=== PATIENT | female | born 1995 | race Caucasian/White ===

== ENCOUNTER → 2018-03-05 | Outpatient (CLI) | payer OTHER ==
--- NOTE | 2018-03-05 13:49 | Diagnostic Imaging Report ---
EXAMINATION: Left knee at 11:12 a.m. INDICATION: Fell, knee pain. Three views were obtained. FINDINGS: There is no fracture, dislocation, or acute bony abnormality evident. The knee joint is fairly well maintained. As noted on the prior exam of 06/17/2017, there is a joint effusion present. The joint effusion is perhaps slightly greater than on the prior study. The MRI left knee exam of 06/23/2017 did note that both menisci were torn and that there was a possibility of mild medial collateral ligament sprain. If further imaging of the knee joint is desired, then repeat MRI exam would be recommended. IMPRESSION: 1. There is no evidence for an acute bony abnormality. 2. The joint effusion noted previously is perhaps slightly greater. Additional considerations as above. Dictated by: Dictated on workstation # [id number]
== END ==
LOC: RAD 10:19
PROVIDERS: ATTEND Nurse Practitioner Primary Care
DX: M25.541 Pain in joints of right hand (principal); W01.0XXA Fall on same level from slipping, tripping and stumbling without subsequent striking against object, initial encounter
CPT/HCPCS: 73562

== ENCOUNTER 2018-09-06 12:13 | Day surgery (SDC) | payer OTHER ==
[~2018-09-06] VITALS: Ht 172.7 cm; Wt 56.7 kg
--- OUTSIDE RECORDS SUMMARY | 2018-09-06 12:18 | XMS REPORT | Referral Summary ---
Author Author [facility] Organization [facility] Address Unknown Phone Unavailable Care Team Providers Care Retail Sales Associate Name Role Phone Kellee Barclay PCP Encounter [facility] Date(s): 10/17/15 - 12/29/15 [facility], Surgery [address] [place], [place] [address] Discharge Disposition: 01-Home or Self Care Attending Physician: Hector Resendiz MD Admitting Physician: Hector Resendiz MD Vital Signs Most recent to 1 oldest [Reference Range]: Temperature Temporal 36.6 degC Artery [36.3-37.8 (10/17/15 12:41 PM) degC] Peripheral Pulse 88 bpm Rate [60-100 bpm] (10/17/15 12:41 PM) Respiratory Rate 16 br/min [14-20 br/min] (10/17/15 12:41 PM) Blood Pressure 101/63 mmHg [90-140/60-90 mmHg] (10/17/15 12:41 PM) SpO2 98 % (10/17/15 12:41 PM) Problem List Condition Effective Dates Status Health Status Informant ADD(Confirmed) Active ADHD(Confirmed) Active WCC (well child Active check)(Confirmed) Unspecified Active orthopedic aftercare(Confirmed) Impingement syndrome Active of right shoulder(Confirmed) Open wound of left Active knee(Confirmed) Open wound of right Active knee(Confirmed) Tendinitis of left Active knee(Confirmed) Transient synovitis Active of left knee(Confirmed) Allergies, Adverse Reactions, Alerts Substance Reaction Severity Status Lortab N&V Active Percocet 5/325 N&V Active Medications Mucinex D tabs, Oral, BID, 0 Refill(s) Start Date: 11/21/15 Status: Ordered Results No data available for this section Immunizations Vaccine Date Refusal Reason tetanus/diphth/pertuss (Tdap) adult/adol 04/19/10 diphtheria/pertussis, acel/tetanus ped 03/02/02 diphtheria/pertussis, acel/tetanus ped 11/21/98 diphtheria/pertussis, acel/tetanus ped 97 diphtheria/pertussis, acel/tetanus ped 97 diphtheria/pertussis, acel/tetanus ped 97 haemophilus b conjugate (HbOC) vaccine 11/21/98 haemophilus b conjugate (HbOC) vaccine 97 haemophilus b conjugate (HbOC) vaccine 97 haemophilus b conjugate (HbOC) vaccine 97 hepatitis B pediatric vaccine 97 hepatitis B pediatric vaccine 97 hepatitis B pediatric vaccine 97 measles/mumps/rubella virus vaccine 03/02/02 measles/mumps/rubella virus vaccine 08/13/98 meningococcal conjugate vaccine 07/04/08 poliovirus vaccine, inactivated 03/02/02 poliovirus vaccine, inactivated 11/21/98 poliovirus vaccine, inactivated 97 poliovirus vaccine, inactivated 97 poliovirus vaccine, inactivated 97 varicella virus vaccine 07/04/08 varicella virus vaccine 05/22/98 Procedures Procedure Date Related Diagnosis Body Site Debridement, subcutaneous tissue (includes 10/17/15 epidermis and dermis, if performed); first 20 sq cm or less Debridement, subcutaneous tissue (includes 10/17/15 epidermis and dermis, if performed); first 20 sq cm or less Debridement, subcutaneous tissue (includes 10/17/15 epidermis and dermis, if performed); first 20 sq cm or less Debridement, subcutaneous tissue (includes 10/17/15 epidermis and dermis, if performed); first 20 sq cm or less Repair, complex, scalp, arms, and/or legs; 10/17/15 2.6 cm to 7.5 cm Repair, complex, scalp, arms, and/or legs; 10/17/15 2.6 cm to 7.5 cm Repair, complex, scalp, arms, and/or legs; 10/17/15 2.6 cm to 7.5 cm Repair, complex, scalp, arms, and/or legs; 10/17/15 2.6 cm to 7.5 cm Arthroscopic synovectomy knee joint-MAJOR1 07/12/15 L Knee Part. Synovectomy 11/08/13 [place] teeth extracted [id number] POST OP GLOBAL ENDS 10-08-15 Social History Social History Type Response Smoking Status Never smoker Assessment and Plan Extracted from: Title: Ambulatory Patient Education Author: Ameena Miller RN Date: 10/17/15 [facility] Post Operative Instructions Ambulation x_ Unrestricted x_Must wear knee brace until you are seen in clinic. You may take it off to take a shower. _ Weight Bearing: _ Partial x_ Full Exercise x_No Exercise ( with left leg- can do upper body exercise) _Light _ _Unrestricted _ _Other: _Do not strain or lift more than lbs. for weeks. Diet __ Liquids (Jell-O, soups, etc., if you are nauseated) __ Begin with liquids and light foods then progress to regular diet. X__ Regular diet __ No alcoholic beverages for 24 hours or while taking pain medication. Personal hygiene __ Bath X__ Shower after _24_ hours __ Sponge Bath __ [facility] _X_ Remove dressing in _24__hours __ Keep dressing clean and dry. _x_ Elevate affected area above level of your heart. __ Do not change dressing until you see your doctor. __ Apply ice to area for ___ hours __ Avoid blowing nose. __ Remove drain in ___ hours __ Change dressing as necessary. _x_ Apply Bacitracin to incision for 5 days. Keep clean and dry after 5 days. Other: If any problems occur or if you have any further questions, please contact your physician. In an emergency, call [phone] ([phone]), if you cannot reach your physician. If you find that you cannot contact your physician, but feel that your signs and symptoms warrant a physician s attention, go to an Emergency room which is the closest to you. Activities: __ Take Tylenol/Advil as needed for discomfort _X_ Prescription given for discomfort. Use as directed. __ Prescription given for antibiotic. Follow instructionson label. Continue taking until medication is gone. _X_ Resume routine medications. Next dose of pain medicine may be given at (Take with food to prevent stomach upset.) Other: Call your surgeon promptly if you have: _X_ Fever over ___101 _X_ Pain not relieved by pain medication _X_ Bleeding or unexpected drainage from incision _X_ Extreme redness or swelling around incision. __ Inability to urinate by: _X_ Persistent nausea and vomiting. __ Cough develops or difficulty breathing Do NOT drive or operate hazardous machinery for 24 hours or while taking pain medication. Do not sign any important documents or make important decisions for 24 hours following surgery. When taking pain medicine, be careful as you walk or climb stairs as dizziness is not unusual. Check temperature every four hours during the day for two days. Follow Up With: Where: When: Hector Resendiz [address] [place], [place] [id number] [facility] (1) In 20 days 11/06/2015 Comments: Call for followup appointment Follow Up With: Where: When: Kellee Barclay Within 3 to 5 days Comments:
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
--- OUTSIDE RECORDS SUMMARY | 2018-09-06 12:18 | XMS REPORT | Referral Summary ---
Author Author [facility] Surgery Organization [facility] Address Unknown Phone Unavailable Care Team Providers Care Rotary Drier Name Role Phone Nano Finn PCP Encounter [facility] [id number] Date(s): 12/09/16 - 12/09/16 [facility] [address] [place], [place] [address] Discharge Diagnosis: Recurrent acute tonsillitis Discharge Diagnosis: Chronic tonsillitis Discharge Disposition: 01-Home or Self Care Attending Physician: Molly Barlow DO Admitting Physician: Molly Barlow DO Vital Signs Most recent to 1 oldest [Reference Range]: Temperature Temporal 37.0 degC Artery [36.3-37.8 (12/09/16 7:51 AM) degC] Peripheral Pulse 91 bpm Rate [60-100 bpm] (12/09/16 7:51 AM) Respiratory Rate 18 br/min [14-20 br/min] (12/09/16 7:51 AM) Blood Pressure 108/65 mmHg [90-140/60-90 mmHg] (12/09/16 7:51 AM) SpO2 98 % (12/09/16 7:51 AM) Problem List Condition Effective Dates Status Health Status Informant ADD(Confirmed) Active ADHD(Confirmed) Active TMJ Active disease(Confirmed) WCC (well child Active check)(Confirmed) Chronic Active tonsillitis(Confirme d) Unspecified Active orthopedic aftercare(Confirmed) Impingement syndrome Active of right shoulder(Confirmed) Open wound of left Active knee(Confirmed) Open wound of right Active knee(Confirmed) Recurrent acute Active tonsillitis(Confirme d) Tendinitis of left Active knee(Confirmed) Transient synovitis Active of left knee(Confirmed) Allergies, Adverse Reactions, Alerts Substance Reaction Severity Status Lortab N&V Active Percocet 5/325 N&V Active Medications Carafate 1 g oral tablet 1 g 1 tabs, Oral, BID, # 60 tabs, 2 Refill(s), Pharmacy: [facility]/pharmacy #[id number], 1 tabs Oral BID Start Date: 11/25/16 Status: Ordered oxyCODONE-acetaminophen 5 mg-325 mg oral tablet 1 tabs, Oral, q4hr, as needed for pain, # 30 tabs, 0 Refill(s) Start Date: 12/09/16 Stop Date: 12/25/16 Status: Ordered tetraciane lolipop tetraciane lolipop, See Instructions, place 1 lolipop in mouth for up to 3 minutes, replace in vial, use q 2-3 hrs prn for pain, # 3 Each, 1 Refill(s), Pharmacy: [facility], place 1 lolipop in mouth for up to 3 minutes, replace in vial, use q... Start Date: 12/09/16 Status: Ordered tetraciane lolipop tetraciane lolipop, See Instructions, place 1 lolipop in mouth for up to 3 minutes, replace in vial, use q 2-3 hrs prn for pain, # 3 Each, 0 Refill(s), Pharmacy: [facility], Keep on hold for patient, place 1 lolipop in mouth for up to 3 minutes, r... Start Date: 12/09/16 Status: Ordered Zofran 4 mg oral tablet 4 mg 1 tabs, Oral, q6hr, Nausea or Vomiting, # 30 tabs, 0 Refill(s), Pharmacy: [facility] [id number] [facility] [employer], 1 tabs Oral q6hr,PRN:Nausea or Vomiting Start Date: 12/09/16 Status: Ordered Zofran ODT 4 mg oral tablet, disintegrating 4 mg 1 tabs, Oral, q6hr, as needed for nausea/vomiting, # 30 tabs, 0 Refill(s), Pharmacy: [facility] #[id number], 1 tabs Oral q6hr,PRN:as needed for nausea/ vomiting Start Date: 12/09/16 Status: Ordered Results No data available for this section Immunizations Given and Recorded Vaccine Date Status Refusal Reason tetanus/diphth/pertuss (Tdap) adult/adol 6/10/10 Recorded diphtheria/pertussis, acel/tetanus ped 03/02/02 Given diphtheria/pertussis, acel/tetanus ped 11/21/98 Given diphtheria/pertussis, acel/tetanus ped 97 Given diphtheria/pertussis, acel/tetanus ped 97 Given diphtheria/pertussis, acel/tetanus ped 97 Given haemophilus b conjugate (HbOC) vaccine 11/21/98 Given haemophilus b conjugate (HbOC) vaccine 97 Given haemophilus b conjugate (HbOC) vaccine 97 Given haemophilus b conjugate (HbOC) vaccine 97 Given hepatitis B pediatric vaccine 97 Given hepatitis B pediatric vaccine 97 Given hepatitis B pediatric vaccine 97 Given measles/mumps/rubella virus vaccine 03/02/02 Given measles/mumps/rubella virus vaccine 08/13/98 Given meningococcal conjugate vaccine 07/04/08 Given poliovirus vaccine, inactivated 03/02/02 Given poliovirus vaccine, inactivated 11/21/98 Given poliovirus vaccine, inactivated 97 Given poliovirus vaccine, inactivated 97 Given poliovirus vaccine, inactivated 97 Given varicella virus vaccine 07/04/08 Given varicella virus vaccine 05/22/98 Given Procedures Procedure Date Related Diagnosis Body Site Tonsillectomy, primary or secondary; age 14 12/09/16 or over.. Arthroscopic synovectomy knee joint-MAJOR1 07/12/15 L Knee Part. Synovectomy 11/08/13 [place] teeth extracted [id number] POST OP GLOBAL ENDS 10-08-15 Social History Social History Type Response Smoking Status Never smoker Assessment and Plan Extracted from: Title: Ambulatory Patient Education Author: Halima Beal RN, ACLS, Date: 12/09/16 BLS, PALS [facility] [place] Post Operative Instructions Ambulate _X Unrestricted __ On Crutches as tolerated __ Weight Bearing Exercise __ None X_ Light __ Unrestricted X__Do not strain or lift more than _ lbs. for _ weeks. Other: Diet __ Liquids (Jell-O, soups, etc., if you are nauseated) X Begin with liquids and light foods then progress to soft diet. __ Regular diet __ No alcoholic beverages for 24 hours or while taking pain medication. Personal hygiene __ Bath __ Shower after __ hours __ Sponge Bath __ [facility] Home care __ Remove dressing in ___hours __ Keep dressing clean and dry. __ Elevate affected area above level of your heart. __ Do not change dressing until you see your doctor. __ Apply ice to area for ___ hours __ Avoid blowing nose. __ Wear sling as directed. _ Keep water out of ears __ Remove drain in ___ hours __ Change dressing as necessary. Other: If any problems occur or if you have any further questions, please contact your physician. In an emergency, call [phone] ([phone]), if you cannot reach your physician. If you find that you cannot contact your physician, but feel that your signs and symptoms warrant a physician s attention, go to an Emergency room which is the closest to you. Activities: X Take Tylenol as needed for discomfort X_ Prescription given for discomfort. Use as directed. __ Prescription given for antibiotic. Follow instructionson label. Continue taking until medication is gone. __ Resume routine medications. __ Ear drainage more than Days __ Stool softener Next dose of pain medicine may be given at (Take with food to prevent stomach upset.) Other: Call your surgeon promptly if you have: __ Fever over 101 __ Ear drainage more than _5 Days X__ Pain not relieved by pain medication X_ Bleeding or unexpected drainage from incision __ Extreme redness or swelling around incision. X__ Inability to urinate by: _8 hours postop X__ Persistent nausea and vomiting. __ Cough develops [...] two days. Follow Up With: Where: When: [facility] [place]; [place] [address] [facility] (1) 12/23/2016 04:30:00 Comments:
--- OUTSIDE RECORDS SUMMARY | 2018-09-06 12:19 | XMS REPORT | Referral Summary ---
Author Author [facility] Organization [facility] Address Unknown Phone Unavailable Care Team Providers Care Trimming Machine Operator Name Role Phone Kellee Barclay PCP Encounter VC Date(s): 04/11/17 - 04/11/17 [facility], [facility] [address] [place] [address] Discharge Diagnosis: Severe dysmenorrhea Discharge Diagnosis: Primary dysmenorrhea Discharge Disposition: 01-Home or Self Care Attending Physician: Meghan Reyes Vital Signs Most recent to 1 oldest [Reference Range]: Temperature Oral 36.8 degC [35.8-37.3 degC] (04/11/17 9:36 AM) Peripheral Pulse 100 bpm Rate [60-100 bpm] (04/11/17 9:36 AM) Respiratory Rate 16 br/min [14-20 br/min] (04/11/17 9:36 AM) Blood Pressure 90/60 mmHg [90-140/60-90 mmHg] (04/11/17 9:36 AM) SpO2 98 % (04/11/17 9:36 AM) Problem List Condition Effective Dates Status [...] N&V Active Percocet 5/325 N&V Active Medications Aviane 100 mcg-20 mcg oral tablet 1 tabs, Oral, Daily, take 21 days of active tablets then skip placebos and start the next pack x3 months in a row, # 84 tabs, 4 Refill(s), Indication: Dysmenorrhea, Pharmacy: [facility] #[id number] Start Date: 04/11/17 Status: Ordered Results No data available for this section Immunizations Given and Recorded Vaccine Date Status Refusal Reason tetanus/diphth/pertuss (Tdap) adult/adol 04/19/10 Recorded diphtheria/pertussis, acel/tetanus ped 03/02/02 Given diphtheria/pertussis, [...] joint-MAJOR1 07/12/15 L Knee Part. Synovectomy 11/08/13 [place] teeth extracted [id number] POST OP GLOBAL ENDS 10-08-15 Social History Social History Type Response Smoking Status Never smoker Assessment and Plan Extracted from: Title: Office Visit Note Author: Meghan Reyes Date: 04/11/17 Assessment/Plan 1.Severe dysmenorrhea Will use OCP for treatment of dysmenorrhea and irregular periods. Start Aviane this Friday. Use consecutively x3 months. Instructions for use and possible side effects discussed, including risk of DVT or PE. Follow-up as needed for any persistent symptoms.
--- OUTSIDE RECORDS SUMMARY | 2018-09-06 12:19 | XMS REPORT | Referral Summary ---
Author Author [facility] Organization [facility] Address Unknown Phone Unavailable Care Team Providers Care Statement Processor Name Role Phone Mark Anthony Ramirez PCP Encounter Date(s): 03/15/15 - 03/15/15 [facility] [address] [place], [place] [address] [id number] Discharge Diagnosis: Depression Discharge Diagnosis: Anxiety Discharge Disposition: 01-Home or Self Care Attending Physician: Mark Anthony Ramirez MD Admitting Physician: Mark Anthony Ramirez MD Vital Signs Most recent to 1 oldest [Reference Range]: Peripheral Pulse 72 bpm Rate [55-90 bpm] (03/15/15 8:19 AM) Respiratory Rate 12 br/min [14-20 br/min] *LOW* (03/15/15 8:19 AM) Blood Pressure 92/56 mmHg [90-138/45-84 mmHg] (03/15/15 8:19 AM) Problem List Condition Effective Dates Status Health Status Informant ADD(Confirmed) Active ADHD(Confirmed) Active WCC (well child Active check)(Confirmed) Unspecified Active orthopedic aftercare(Confirmed) Impingement syndrome Active of right shoulder(Confirmed) Tendinitis of left Active knee(Confirmed) Transient synovitis [...] joint-MAJOR1 07/12/15 L Knee Part. Synovectomy 11/08/13 [place] teeth extracted [id number] POST OP GLOBAL ENDS 10-08-15 Social History Social History Type Response Smoking Status Never smoker Assessment and Plan Extracted from: Title: Office Visit Note Author: Mark Anthony Ramirez MD Date: 03/15/15 Assessment/Plan Anxiety Slowly improving. She's had a good initial response to medication and tolerating it well. We'll give it another 2 weeks would like him to call at that time. If she still not showing improvement we may increase the dose from 50-100 mg sertraline. We'll see her back at the end of the month to see how she is doing before she leaves [facility]. Encouraged her to continue with the counseling to see if she can adjust to this. Ordered: Office Visit Level 3 Est 80254 Depression As above. Ordered: Office Visit Level 3 Est 62590
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
--- OUTSIDE RECORDS SUMMARY | 2018-09-06 12:19 | XMS REPORT | Referral Summary ---
Author Author [facility] Organization [facility] Address Unknown Phone Unavailable Care Team Providers Care Energy Technician Name Role Phone Kellee Barclay PCP Encounter [facility] Date(s): 07/18/15 - 07/18/15 [facility] [address] [place], [place] [address] Discharge Diagnosis: Unspecified orthopedic aftercare Discharge Disposition: 01-Home or Self Care Attending Physician: Gerson Landry Admitting Physician: Gerson Landry Vital Signs Most recent to 1 oldest [Reference Range]: Respiratory Rate 18 br/min [14-20 br/min] (07/18/15 10:50 AM) Problem List Condition Effective Dates Status [...] joint-[email or web address] 07/12/15 L Knee Part. Synovectomy 11/08/13 [place] teeth extracted [id number] POST OP GLOBAL ENDS 10-08-15 Social History Social History Type Response Smoking Status Never smoker Assessment and Plan Extracted from: Title: Office Visit Note Author: Gerson Landry Date: 07/18/15 Assessment/Plan Unspecified orthopedic aftercare Plan: Patient and her father were counseled on the surgical findings with use of a knee model they did not want to see the arthroscopic photos. I talked with her about aspiration of her knee but she refused stating that she had aspirations of her knee in the past and the fluid always came back so she did not want to do a knee aspiration today. We'll have her take Dilaudid 4 mg up to every 3 or 4 hours. Also want her to take ibuprofen 600 mg 3 times a day and I wrote for prescription for tramadol that she can take in addition to the ibuprofen in the Dilaudid. Also wrote for a few Valium to take as needed for muscle spasms. We'll see her in a week to ensure that things are improving and if there are questions concerns or problems at any point she is to call. Patient and her father also extensively counseled by Dr. Walsh during this visit. Ordered: Postoperative Est [id number] Request for Therapies Return to Clinic Orders: diazepam, 5 mg 1 tabs, Oral, QID, Muscle Spasm, # 10 tabs, 0 Refill(s) HYDROmorphone, 4 mg 1 tabs, Oral, q4hr, as needed for pain, # 30 tabs, 0 Refill(s) traMADol, See Instructions, take 1-2 tabs by mouth every 4-6 hrs as needed for pain, # 50 tabs, 0 Refill(s)
--- OUTSIDE RECORDS SUMMARY | 2018-09-06 12:19 | XMS REPORT | Referral Summary ---
Author Author [facility] Organization [facility] Address Unknown Phone Unavailable Care Team Providers Care Event Promotions Coordinator Name Role Phone Kellee Barclay PCP Encounter [facility] Date(s): 01/12/16 - 01/12/16 [facility] [address] [place], [place] [address] Discharge Diagnosis: Transient synovitis of left knee Discharge Disposition: 01-Home or Self Care Attending Physician: Claude Walsh MD Admitting Physician: Claude Walsh MD Vital Signs Most recent to 1 oldest [Reference Range]: Respiratory Rate 18 br/min [14-20 br/min] (01/12/16 3:23 PM) Problem List Condition Effective Dates Status [...] Refill(s) Start Date: 11/21/15 Status: Ordered Results Microbiology Reports TEST: Gram Smear STATUS: Auth (Verified) BODY SITE: Knee, Left SOURCE: Synovial Fluid COLLECTED DATE/TIME: 01/12/16 4:05 PM Gram Smear Few (1-5/OIF) white blood cells No microorganisms observed OIF=Oil Immersion Field LPF=Low Power Field Immunizations Vaccine Date Refusal Reason tetanus/diphth/pertuss (Tdap) [...] Procedures Procedure Date Related Diagnosis Body Site Arthrocentesis, aspiration and/or injection, 01/12/16 major joint or bursa (eg, shoulder, hip, knee, subacromial bursa); without ultrasound guidance Arthroscopic synovectomy knee joint-MAJOR1 07/12/15 L Knee Part. Synovectomy 11/08/13 [place] teeth extracted [id number] POST OP GLOBAL ENDS 10-08-15 Social History Social History Type Response Smoking Status Never smoker Assessment and Plan Extracted from: Title: Office Visit Note Author: Claude Walsh MD Date: 01/12/16 Assessment/Plan Transient synovitis of left knee She has recurrence synovitis in her left knee. I recommend we aspirate the knee today sent it off forcrystals, Gram stain, cell count, cultures. See her back in 6 days. Review all the lab. And see if she's better. If there was blood in the joint and I was going to obtain an MRI but there is no blood in the joint. Procedure note: Left knee was sterilely prepped with Betadine said. Her and laterally to the patella. Then theanesthetized the skin with one percent lidocaine superior and laterally to the patella. I then aspirated off 45 mL of synovial fluid. There is no bloodin it. I then injected back 80 mg of Kenalog and 4 mL one percent lidocaine with epinephrine. Applied aBand-Aid and an Errol wrap. I will see her back in 6 days. Ordered: triamcinolone, 2 mL, IntraARTICULAR , Once, First Dose: 01/12/16 17:00:00 TELECOMMUNICATIONS FACILITY EXAMINER, Stop Date: 01/12/16 17:00:00 TELECOMMUNICATIONS FACILITY EXAMINER, [facility] 5301-1051-37 Arthro/Asp Major Joint Inj (Shoulder, Hip, Knee) 80632 Office Visit Level 3 Est 58576
--- OUTSIDE RECORDS SUMMARY | 2018-09-06 12:19 | XMS REPORT | Referral Summary ---
Author Author [facility] Organization [facility] Address Unknown Phone Unavailable Care Team Providers Care Lcac Radar Operator/Navigator Name Role Phone Kellee Barclay PCP Encounter [facility] [id number] Date(s): 08/01/15 - 08/01/15 [facility] [address] [place], [place] [address] Discharge Diagnosis: Unspecified orthopedic aftercare Discharge Disposition: 01-Home or Self Care Attending Physician: Gerson Landry Admitting Physician: Gerson Landry Vital Signs Most recent to 1 oldest [Reference Range]: Respiratory Rate 18 br/min [14-20 br/min] (08/01/15 3:26 PM) Problem List Condition Effective Dates Status [...] joint-MAJOR1 07/12/15 L Knee Part. Synovectomy 11/08/13 [place] teeth extracted [id number] POST OP [facility] i-marker 10-08-15 Social History Social History Type Response Smoking Status Never smoker Assessment and Plan Extracted from: Title: Office Visit Note Author: Gerson Landry Date: 08/01/15 Assessment/Plan Unspecified orthopedic aftercare Plan: If that's blistered area comes off want them to put Neosporin over the front of her knee with some nonadherent pads and continue wrapping her knee with an Errol wrap. She'll continue with her therapy couple times a week. We'll have her take some Keflex 500 mg 4 times a day. Also want her to take anti-inflammatory and a prescription for meloxicam was call out to her pharmacy. She'll continue taking Neurontin at bedtime and tramadol as needed for discomfort during the day. If this questions concerns or problems at any point she is to call. Ordered: Postoperative Est [id number] Return to Clinic Orders: cephalexin, 500 mg 1 caps, Oral, QID, X 7 days, # 28 caps, 0 Refill(s) , Pharmacy: [facility] #[id number], 1 caps Oral QID,x7 days
--- OUTSIDE RECORDS SUMMARY | 2018-09-06 12:19 | XMS REPORT | Referral Summary ---
Author Author [facility] Organization [facility] Address Unknown Phone Unavailable Care Team Providers Care Java Mobile Developer Name Role Phone Nano Finn PCP Encounter [facility] [id number] Date(s): 11/29/16 - 11/29/16 [facility] [address] [place], [place] [address] Discharge Disposition: 01-Home or Self Care Attending Physician: Molly Barlow DO Admitting Physician: Molly Barlow DO Vital Signs Most recent to 1 oldest [Reference Range]: Peripheral Pulse 70 bpm Rate [60-100 bpm] (11/29/16 2:39 PM) Blood Pressure 106/64 mmHg [90-140/60-90 mmHg] (11/29/16 2:39 PM) SpO2 97 % (11/29/16 2:39 PM) Problem List Condition Effective Dates Status [...] BID, # 60 tabs, 2 Refill(s), Pharmacy: [facility]/pharmacy #[id number], 1 tabs Oral BID Start Date: 11/25/16 Status: Ordered Zofran ODT 4 mg oral tablet, disintegrating 4 mg 1 tabs, Oral, q8hr, as needed for nausea/vomiting, # 20 tabs, 0 Refill(s), Pharmacy: [facility]/pharmacy #[id number], 1 tabs Oral q8hr,PRN:as needed for nausea/ vomiting Start Date: 11/25/16 Status: Ordered Results No data available for [...] joint-MAJOR1 07/12/15 L Knee Part. Synovectomy 11/08/13 [place] teeth extracted [id number] POST OP GLOBAL ENDS 10-08-15 Social History Social History Type Response Smoking Status Never smoker Assessment and Plan No data available for this section
--- OUTSIDE RECORDS SUMMARY | 2018-09-06 12:19 | XMS REPORT | Referral Summary ---
Author Author [facility] Organization [facility] Address Unknown Phone Unavailable Care Team Providers Care Drum Stock Clerk Name Role Phone Kellee Barclay PCP Encounter [facility] Date(s): 03/27/15 - 03/27/15 [facility] [address] [facility] [place] [address] Discharge Diagnosis: Anxiety Discharge Diagnosis: Depression Discharge Disposition: 01-Home or Self Care Attending Physician: Mark Anthony Ramirez MD Admitting Physician: Mark Anthony Ramirez MD Vital Signs Most recent to 1 oldest [Reference Range]: Peripheral Pulse 96 bpm Rate [55-90 bpm] *HI* (03/27/15 10:12 AM) Respiratory Rate 12 br/min [14-20 br/min] *LOW* (03/27/15 10:12 AM) Blood Pressure 98/56 mmHg [90-138/45-84 mmHg] (03/27/15 10:12 AM) Problem List Condition Effective Dates Status Health Status Informant ADD(Confirmed) Active ADHD(Confirmed) Active WCC (well child Active check)(Confirmed) Unspecified Active orthopedic aftercare(Confirmed) Impingement syndrome Active of right shoulder(Confirmed) Open wound of left Active knee(Confirmed) Open wound of right Active knee(Confirmed) Tendinitis of left Active knee(Confirmed) Transient synovitis Active of left knee(Confirmed) Allergies, Adverse Reactions, Alerts Substance Reaction Severity Status Lortab Active Percocet 5/ Active Medications No Known Medications Results No [...] joint-MAJOR1 07/12/15 L Knee Part. Synovectomy 11/08/13 [place] teeth extracted [id number] POST OP GLOBAL ENDS 10-08-15 Social History Social History Type Response Smoking Status Never smoker Assessment and Plan Extracted from: Title: Office Visit Note Author: Mark Anthony Ramirez MD Date: 05/12/15 Assessment/Plan Anxiety Overall she says seem improved and tolerating the medicine well. Wanted to continue the same dose and ideally for a few months. 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 If so we'll have to reevaluate she gets back from school year. Note was written for appointment today in follow-up at that time. Depression As above
--- OUTSIDE RECORDS SUMMARY | 2018-09-06 12:19 | XMS REPORT | Referral Summary ---
Author Author [facility] Organization [facility] Address Unknown Phone Unavailable Care Team Providers Care Concrete Boom Operator Name Role Phone Kellee Barclay PCP Encounter [facility] Date(s): 07/06/15 - 07/06/15 [facility] [address] [place], [place] [address] Discharge Diagnosis: Transient synovitis of left knee Discharge Diagnosis: Impingement syndrome of right shoulder Discharge Disposition: 01-Home or Self Care Attending Physician: Claude Walsh MD Admitting Physician: Claude Walsh MD Vital Signs Most recent to 1 oldest [Reference Range]: Respiratory Rate 18 br/min [14-20 br/min] (07/06/15 3:44 PM) Problem List Condition Effective Dates Status [...] joint-MAJOR1 07/12/15 L Knee Part. Synovectomy 11/08/13 [place] teeth extracted [id number] POST OP GLOBAL ENDS 10-08-15 Social History Social History Type Response Smoking Status Never smoker Assessment and Plan Extracted from: Title: Office Visit Note Author: Claude Walsh MD Date: 07/07/15 Assessment/Plan Impingement syndrome of right shoulder I would recommend we try an injection in the subacromial space and the right shoulder. She wants wait till she is asleep under anesthesia to do this. Ordered: Office Visit Level 3 Est 46504 Transient synovitis of left knee She has recurrent effusions in the left knee recommend we do a left knee arthroscopy with debridement. We'll do the injection the right shoulder in the subacromial space same time. Surgery be an outpatient general anesthetic. She's currently scheduled for surgery on July 12 with a follow-up on July 18. Talk with her and her father about surgery and the postoperative care. Told her is no guarantee this may not keep recurring. But I feel her must be something in her knee that's irritating to keep it having recurrent effusions. Ordered: Office Visit Level 3 Est 36546
--- OUTSIDE RECORDS SUMMARY | 2018-09-06 12:20 | XMS REPORT | Referral Summary ---
Author Author [facility] Organization [facility] Address Unknown Phone Unavailable Care Team Providers Care General Intern Name Role Phone Kellee Barclay PCP Encounter [facility] Date(s): 11/21/15 - 11/21/15 [facility] [address] [place] [address] [facility] Discharge Disposition: 01-Home or Self Care Attending Physician: Haja Davenport PA-C Attending Physician: Provider, Immediate Care Admitting Physician: Provider, Immediate Care Vital Signs Most recent to 1 oldest [Reference Range]: Temperature Oral 36.7 degC [35.8-37.3 degC] (11/21/15 11:14 AM) Peripheral Pulse 107 bpm Rate [60-100 bpm] *HI* (11/21/15 11:14 AM) Blood Pressure 110/68 mmHg [90-140/60-90 mmHg] (11/21/15 11:14 AM) SpO2 99 % (11/21/15 11:14 AM) Problem List Condition Effective Dates Status [...] joint-MAJOR1 07/12/15 L Knee Part. Synovectomy 11/08/13 [place] teeth extracted [id number] POST OP GLOBAL ENDS 10-08-15 Social History Social History Type Response Smoking Status Never smoker Assessment and Plan Extracted from: Title: Office Visit Note Author: Haja Davenport PA-C Date: 11/21/15 Assessment/Plan 1.Sore throat Rapid strep negative. Throat Cx pending. Pt will take OTC ibuprofen as directed. Diagnosis and treatment discussed. Patient advised to follow up with PCP in 2-3 days. If symptoms worsen at any time, patient will go to the nearest ER for further evaluation. Patient stable upon discharge, alert and orientated with no apparent distress, and indicated understanding of discharge instructions. Ordered: Group A Strep Culture Office Visit Level 3 Est 65957 Extracted from: Title: Clinical Document Author: Haja Davenport PA-C Date: 11/21/15 To Whom It May Concern: This patient is currently under my medical care and was seen in the office on 10/25. May return to school on 11/22/14. Limitations/Restrictions none
--- OUTSIDE RECORDS SUMMARY | 2018-09-06 12:20 | XMS REPORT | Referral Summary ---
Author Author [facility] Organization [facility] Address Unknown Phone Unavailable Care Team Providers Care Front Office Secretary Name Role Phone Kellee Barclay PCP Encounter [facility] Date(s): 11/25/16 - 11/25/16 [facility] [address] [place] [address] Discharge Diagnosis: Generalized abdominal pain Discharge Disposition: 01-Home or Self Care Attending Physician: Nano Finn APRN Vital Signs Most recent to 1 oldest [Reference Range]: Peripheral Pulse 108 bpm Rate [60-100 bpm] *HI* (11/25/16 9:09 AM) Respiratory Rate 18 br/min [14-20 br/min] (11/25/16 9:09 AM) Blood Pressure 104/76 mmHg [90-140/60-90 mmHg] (11/25/16 9:09 AM) SpO2 98 % (11/25/16 9:09 AM) Problem List Condition Effective Dates Status [...] BID, # 60 tabs, 2 Refill(s), Pharmacy: [facility][id number], 1 tabs Oral BID Start Date: 11/25/16 Status: Ordered CoQ10 mg, Oral, Daily, 0 Refill(s) Start Date: 11/25/16 Status: Ordered HYDROmorphone 2 mg oral tablet 2 mg 1 tabs, Oral, q4hr, as needed for pain, 0 Refill(s) Start Date: 11/25/16 Status: Ordered multivitamin Daily, 0 Refill(s) Start Date: 11/25/16 Status: Ordered Zofran ODT 4 mg oral tablet, disintegrating 4 mg 1 tabs, Oral, q8hr, as needed for nausea/vomiting, # 20 tabs, 0 Refill(s), Pharmacy: [facility]/pharmacy #[id number], 1 tabs Oral q8hr,PRN:as needed for nausea/ vomiting Start Date: 11/25/16 Status: Ordered Results Hematology Most recent to 1 oldest [Reference Range]: WBC [4.8-10.8 8.4 10*3/uL 10*3/uL] (11/25/16 10:05 AM) RBC [4.00-5.20] 4.74 (11/25/16 10:05 AM) Hgb [12.0-16.0 14.2 gm/dL gm/dL] (11/25/16 10:05 AM) Hct [37.0-47.0 %] 41.3 % (11/25/16 10:05 AM) MCV [82.0-99.0 fL] 87.1 fL (11/25/16 10:05 AM) MCH [27.0-32.0 pg] 30.0 pg (11/25/16 10:05 AM) MCHC [32.0-36.0 34.4 gm/dL gm/dL] (11/25/16 10:05 AM) RDW [11.5-14.5 %] 12.5 % (11/25/16 10:05 AM) Platelet [150-400 257 10*3/uL 10*3/uL] (11/25/16 10:05 AM) MPV [8.8-14.8 fL] 10.6 fL (11/25/16 10:05 AM) Immature 0.2 % Granulocytes (11/25/16 10:05 AM) [0.0-1.0 %] Neutrophils [51-75 69 % %] (11/25/16 10:05 AM) Lymphocytes [20-46 22 % %] (11/25/16 10:05 AM) Monocytes [4-11 %] 7 % (11/25/16 10:05 AM) Eosinophils [0-4 %] 1 % (11/25/16 10:05 AM) Basophils [0-2 %] 0 % (11/25/16 10:05 AM) Neutro Absolute 5.77 [1.90-7.00] (11/25/16 10:05 AM) Lymph Absolute 1.86 [0.80-3.30] (11/25/16 10:05 AM) [place] Absolute 0.62 [0.30-1.00] (11/25/16 10:05 AM) Eos Absolute 0.08 [0.00-0.50] (11/25/16 10:05 AM) Baso Absolute 0.03 [0.00-0.20] (11/25/16 10:05 AM) Sed Rate [0-23] 8 (11/25/16 10:05 AM) Chemistry Most recent to 1 oldest [Reference Range]: Sodium Lvl [135-144 139 mEq/L mEq/L] (11/25/16 10:05 AM) Potassium Lvl 4.4 mEq/L [3.5-5.2 mEq/L] (11/25/16 10:05 AM) Chloride [99-111 107 mEq/L mEq/L] (11/25/16 10:05 AM) CO2 [22-31 mEq/L] 24 mEq/L (11/25/16 10:05 AM) AGAP [3-20] 8 (11/25/16 10:05 AM) BUN [7-19 mg/dL] 22 mg/dL *HI* (11/25/16 10:05 AM) Glucose Lvl [70-99 83 mg/dL mg/dL] (11/25/16 10:05 AM) Creatinine Lvl 0.82 mg/dL [0.57-1.11 mg/dL] (11/25/16 10:05 AM) eGFR [>60 mL/min] >60 mL/min 1 (11/25/16 10:05 AM) Calcium Lvl 9.7 mg/dL [8.9-10.5 mg/dL] (11/25/16 10:05 AM) Albumin Lvl [3.5-5.0 4.6 gm/dL gm/dL] (11/25/16 10:05 AM) Total Protein 6.8 gm/dL [6.1-7.7 gm/dL] (11/25/16 10:05 AM) Globulin [1.8-4.0 2.2 gm/dL gm/dL] (11/25/16 10:05 AM) ALT [0-55 U/L] 16 U/L (11/25/16 10:05 AM) AST [5-34 U/L] 18 U/L (11/25/16 10:05 AM) Alk Phos [40-150 62 U/L U/L] (11/25/16 10:05 AM) Bili Total [0.2-1.2 0.3 mg/dL mg/dL] (11/25/16 10:05 AM) 1Result Comment: Multiply eGFR results by 1.21 for race. Urinalysis Most recent to 1 oldest [Reference Range]: UA Color Yellow (11/25/16 10:01 AM) UA Appear Clear (11/25/16 10:01 AM) UA pH [5.0-8.0] 6.0 (11/25/16 10:01 AM) UA Leuk Est Negative [Negative] (11/25/16 10:01 AM) UA Nitrite Negative [Negative] (11/25/16 10:01 AM) UA Protein Negative [Negative] (11/25/16 10:01 AM) UA Glucose Negative [Negative] (11/25/16 10:01 AM) UA Ketones Pos 1+ [Negative] *ABN* (11/25/16 10:01 AM) UA Urobilinogen 0.2 mg/dL [<=1.0 mg/dL] (11/25/16 10:01 AM) UA Bili [Negative] Negative (11/25/16 10:01 AM) UA Blood [Negative] Negative (11/25/16 10:01 AM) UA Spec Grav 1.025 [1.003-1.030] (11/25/16 10:01 AM) Type Clean Catch (11/25/16 10:01 AM) Immunizations Given and Recorded Vaccine Date Status [...] Procedures Procedure Date Related Diagnosis Body Site Collection of venous blood by venipuncture 11/25/16 Arthroscopic synovectomy knee joint-MAJOR1 07/12/15 L Knee Part. Synovectomy 11/08/13 [place] teeth extracted [id number] [facility] O-COD[facility] 10-08-15 Social History Social History Type Response Smoking Status Never smoker Assessment and Plan Extracted from: Title: Generalized abdominal pain Author: Nano Finn APRN Date: Assessment/Plan 1.Generalized abdominal pain Ordered: Office Visit Level 4 Est 47202 Hydration, bland foods, avoid supplements, ensure daily stool, Carafate BID x 3-4 weeks, Zofran as needed nausea. Lab pending. If elevated WBC, hematuria, will consider CT scan. Differentials include viral gastroenteritis, adverse effects from supplementation, UTI, appendicitis. Follow closely.
--- OUTSIDE RECORDS SUMMARY | 2018-09-06 12:20 | XMS REPORT | Referral Summary ---
Author Author [facility] Organization [facility] Address Unknown Phone Unavailable Care Team Providers Care Fabric Pattern Grader Name Role Phone Kellee Barclay PCP Encounter [facility] Date(s): 11/06/15 - 11/06/15 [facility] [address] [place], [place] [address] Discharge Diagnosis: Open wound of left knee [...] joint-MAJOR1 07/12/15 L Knee Part. Synovectomy 11/08/13 [place] teeth extracted [id number] POST OP GLOBAL ENDS 10-08-15 Social History Social History Type Response Smoking Status Never smoker Assessment and Plan Extracted from: Title: Office Visit Note Author: Hector Resendiz MD Date: 11/06/15 Assessment/Plan 1.Open wound of left knee 3 weeks out fromexcisionand closureof full- thicknessfrostbite injuryfromcooling unitafter knee scope. Wound has overlying eschar with no signs of infection at this point. I'll see her back next week. She should startbending her kneegetting closer to normal. She should not start full exercises at this point. Ordered: Postoperative Est 93996
--- OUTSIDE RECORDS SUMMARY | 2018-09-06 12:20 | XMS REPORT | Referral Summary ---
Author Author [facility] Organization [facility] Address Unknown Phone Unavailable Care Team Providers Care Assistant Professor Of English Name Role Phone Mark Anthony Ramirez PCP Encounter Date(s): 03/15/15 - 03/15/15 [facility] [address] [place], [place] [address] [address] Discharge Diagnosis: Depression Discharge Diagnosis: Anxiety [...] joint-MAJOR1 07/12/15 L Knee Part. Synovectomy 11/08/13 [place] teeth extracted [id number] POST OP GLOBAL ENDS 10-08-15 Social History [...] how she is doing before she leaves [facility]. Encouraged her to continue with the counseling to see if she can adjust to this. Ordered: Office Visit Level 3 Est 89390 Depression As above. Ordered: Office Visit Level 3 Est 27926
--- OUTSIDE RECORDS SUMMARY | 2018-09-06 12:20 | XMS REPORT | Referral Summary ---
Author Author [facility] Organization [facility] Address Unknown Phone Unavailable Care Team Providers Care Judicial Administrative Assistant Name Role Phone Kellee Barclay PCP Encounter VC Date(s): 06/23/15 - 06/23/15 [facility] [address] [place], [place] [address] Discharge Diagnosis: Pain in joint involving lower leg Discharge Diagnosis: Impingement syndrome of right shoulder Discharge Diagnosis: Transient synovitis of left knee Discharge Disposition: 01-Home or Self Care Attending Physician: Claude Walsh MD Admitting Physician: Claude Walsh MD Vital Signs Most recent to 1 oldest [Reference Range]: Respiratory Rate 18 br/min [14-20 br/min] (06/23/15 3:01 PM) Problem List Condition Effective Dates Status [...] joint-MAJOR1 07/12/15 L Knee Part. Synovectomy 11/08/13 [place] teeth extracted [id number] POST OP GLOBAL ENDS 10-08-15 Social History Social History Type Response Smoking Status Never smoker Assessment and Plan Extracted from: Title: Office Visit Note Author: Claude Walsh MD Date: 06/23/15 Assessment/Plan Impingement syndrome of right shoulder I think she may have a superior labral tear in her right shoulder and I'd recommend we do an MR arthrogram of that. Ordered: Office Visit Level 3 Est 14839 Pain in joint involving lower leg Ordered: Office Visit Level 3 Est 00020 Transient synovitis of left knee Far as her left knee goes she keeps on of his recurrent effusion and I'd recommend we obtain another MRI study of her left knee and see if there is something else going on with that. Even if we don't see anything wrong on that I probably recommend doing an arthroscopy and cleaning up the synovitis in her knee. I will see her back after the MRI studies of both the right shoulder and the left knee. This was all discussed with both her and her mother. Ordered: Office Visit Level 3 Est 83225
--- OUTSIDE RECORDS SUMMARY | 2018-09-06 12:20 | XMS REPORT | Referral Summary ---
Author Author [facility] Organization [facility] Address Unknown Phone Unavailable Care Team Providers Care Tobacco Sampler Name Role Phone Kellee Barclay PCP Encounter VC Date(s): 06/05/17 - 06/05/17 [facility] [address] [place] [address] Discharge Disposition: 01-Home or Self Care Attending Physician: Nano Finn APRN Vital Signs Most recent to 1 oldest [Reference Range]: Peripheral Pulse 97 bpm Rate [60-100 bpm] (06/05/17 2:42 PM) Blood Pressure 100/60 mmHg [90-140/60-90 mmHg] (06/05/17 2:42 PM) SpO2 99 % (06/05/17 2:42 PM) Problem List Condition Effective Dates Status [...] N&V Active Percocet 5/325 N&V Active Medications Desogen 0.15 mg-0.03 mg oral tablet 1 tabs, Oral, Daily, take 21 days of active tablets then skip placebos and start the next pack., # 84 tabs, 3 Refill(s), Indication: Irregular periods, Pharmacy: [facility] #[id number] Start Date: 05/01/17 Status: Ordered Miscellaneous DME DME Item left OA alyson brace left knee effusion, chronic medial meniscus injury length of need: 99, See Instructions, # 1 Each, 0 Refill(s), Supply Start Date: 06/05/17 Status: Ordered Results No data available for [...] joint-MAJOR1 07/12/15 L Knee Part. Synovectomy 11/08/13 [place] teeth extracted [id number] POST OP GLOBAL ENDS 10-08-15 Social History Social History Type Response Smoking Status Never smoker Assessment and Plan Extracted from: Title: Clinical Document Author: Nano Finn APRN Date: 06/05/17 To Whom It May Concern, Annie is followed in primary care for chronic anxiety. It is recommended she have a service dog for support in this condition.
--- OUTSIDE RECORDS SUMMARY | 2018-09-06 12:20 | XMS REPORT | Referral Summary ---
Author Author [facility] Organization [facility] Address Unknown Phone Unavailable Care Team Providers Care Nutrition And Dietetics Instructor Name Role Phone Kellee Barclay PCP Encounter VC Date(s): 08/14/17 - 08/14/17 [facility] [address] [place] [address] Discharge Diagnosis: Effusion, left knee Discharge Disposition: 01-Home or Self Care Attending Physician: Nano Finn APRN Vital Signs Most recent to 1 oldest [Reference Range]: Peripheral Pulse 101 bpm Rate [60-100 bpm] *HI* (08/14/17 3:01 PM) Blood Pressure 110/72 mmHg [90-140/60-90 mmHg] (08/14/17 3:01 PM) SpO2 98 % (08/14/17 3:01 PM) Problem List Condition Effective Dates [...] Adverse Reactions, Alerts Substance Reaction Severity Status Percocet 5/325 N&V Active Lortab N&V Active Medications Desogen 0.15 mg-0.03 mg oral tablet 1 tabs, Oral, Daily, take 21 days of active tablets then skip placebos and start the next pack., # 84 tabs, 3 Refill(s), Indication: Irregular periods, Pharmacy: [facility] #[id number] Start Date: 05/01/17 Status: Ordered Miscellaneous DME DME Item left OA alyson brace left knee effusion, chronic medial meniscus injury length of need: 99, See Instructions, # 1 Each, 0 Refill(s), Supply Start Date: 06/05/17 Status: Ordered Results No data available for this section Immunizations Given and Recorded Vaccine Date Status Refusal Reason tetanus/diphth/pertuss (Tdap) adult/adol 04/19/10 Recorded varicella virus vaccine 07/04/08 Given varicella virus vaccine 05/22/98 Given meningococcal conjugate vaccine 07/04/08 Given poliovirus vaccine, inactivated 03/02/02 Given poliovirus vaccine, inactivated 11/21/98 Given poliovirus vaccine, inactivated 97 Given poliovirus vaccine, inactivated 97 Given poliovirus vaccine, inactivated 97 Given measles/mumps/rubella virus vaccine 03/02/02 Given measles/mumps/rubella virus vaccine 08/13/98 Given diphtheria/pertussis, acel/tetanus ped 03/02/02 Given diphtheria/pertussis, acel/tetanus [...] Given hepatitis B pediatric vaccine 97 Given Procedures Procedure Date Related Diagnosis Body Site Tonsillectomy, primary or secondary; age 12 12/09/16 or over.. Arthroscopic synovectomy knee joint-MAJOR1 07/12/15 L Knee Part. Synovectomy 11/08/13 [place] teeth extracted [id number] POST OP GLOBAL ENDS 10-08-15 Social History Social History Type Response Smoking Status Never smoker entered on: 04/25/14 Assessment and Plan No data available for this section
--- OUTSIDE RECORDS SUMMARY | 2018-09-06 12:20 | XMS REPORT | Referral Summary ---
Author Author [facility] Organization [facility] Address Unknown Phone Unavailable Care Team Providers Care Fx Artist Name Role Phone Kellee Barclay PCP Encounter VC Date(s): 08/02/15 - 08/02/15 [facility] [address] [place], [place] [address] Discharge Diagnosis: Unspecified orthopedic aftercare Discharge Disposition: 01-Home or Self Care Attending Physician: Claude Walsh MD Admitting Physician: Claude Walsh MD Vital Signs Most recent to 1 oldest [Reference Range]: Respiratory Rate 18 br/min [14-20 br/min] (08/02/15 12:28 PM) Problem List Condition Effective Dates Status [...] N&V Active Medications No Known Medications Results Hematology Most recent to 1 oldest [Reference Range]: WBC [4.8-10.8 7.8 10*3/uL 10*3/uL] (08/02/15 1:10 PM) RBC [4.00-5.20] 5.07 (08/02/15 1:10 PM) Hgb [12.0-16.0 14.4 gm/dL gm/dL] (08/02/15 1:10 PM) Hct [37.0-47.0 %] 42.7 % (08/02/15 1:10 PM) MCV [82.0-99.0 fL] 84.2 fL (08/02/15 1:10 PM) MCH [27.0-32.0 pg] 28.4 pg (08/02/15 1:10 PM) MCHC [32.0-36.0 33.7 gm/dL gm/dL] (08/02/15 1:10 PM) RDW [11.5-14.5 %] 14.6 % *HI* (08/02/15 1:10 PM) Platelet [150-400 312 10*3/uL 10*3/uL] (08/02/15 1:10 PM) MPV [8.8-14.8 fL] 11.3 fL (08/02/15 1:10 PM) Immature 0.1 % Granulocytes (08/02/15 1:10 PM) [0.0-1.0 %] Neutrophils [51-75 68 % %] (08/02/15 1:10 PM) Lymphocytes [20-46 24 % %] (08/02/15 1:10 PM) Monocytes [4-11 %] 8 % (08/02/15 1:10 PM) Eosinophils [0-4 %] 1 % (08/02/15 1:10 PM) Basophils [0-2 %] 0 % (08/02/15 1:10 PM) Neutro Absolute 5.25 10*3 [1.90-7.00 10*3] (08/02/15 1:10 PM) Lymph Absolute 1.86 10*3 [0.80-3.30 10*3] (08/02/15 1:10 PM) [place] Absolute 0.59 10*3 [0.30-1.00 10*3] (08/02/15 1:10 PM) Eos Absolute 0.04 10*3 [0.00-0.50 10*3] (08/02/15 1:10 PM) Baso Absolute 0.01 10*3 [0.00-0.20 10*3] (08/02/15 1:10 PM) Chemistry Most recent to 1 oldest [Reference Range]: Sodium Lvl [135-144 141 mEq/L mEq/L] (08/02/15 1:10 PM) Potassium Lvl 4.2 mEq/L [3.5-5.2 mEq/L] (08/02/15 1:10 PM) Chloride [99-111 107 mEq/L mEq/L] (08/02/15 1:10 PM) CO2 [22-31 mEq/L] 27 mEq/L (08/02/15 1:10 PM) AGAP [3-20] 7 (08/02/15 1:10 PM) BUN [8-21 mg/dL] 14 mg/dL (08/02/15 1:10 PM) Glucose Lvl [70-99 97 mg/dL mg/dL] (08/02/15 1:10 PM) Creatinine Lvl 0.96 mg/dL [0.57-1.11 mg/dL] (08/02/15 1:10 PM) eGFR [>60 mL/min] >60 mL/min 1 (08/02/15 1:10 PM) Calcium Lvl 10.0 mg/dL [8.9-10.5 mg/dL] (08/02/15 1:10 PM) 1Result Comment: Multiply eGFR results by 1.21 for race. Immunizations Vaccine Date Refusal Reason tetanus/diphth/pertuss (Tdap) [...] Site Collection of venous blood by venipuncture 08/02/15 Arthroscopic synovectomy knee joint-MAJOR1 07/12/15 L Knee Part. Synovectomy 11/08/13 [place] teeth extracted [id number] POST OP GLOBAL ENDS 10-08-15 Social History Social History Type Response Smoking Status Never smoker Assessment and Plan Extracted from: Title: Office Visit Note Author: Claude Walsh MD Date: 08/02/15 Assessment/Plan Unspecified orthopedic aftercare I think she may be developing some type of virus. May be coming down with the fluid. She also has a small area of what appears to be a frostbite that I think iscausing more pain isnerves around the areastart tohave regenerated a little bit. I recommend we obtain a CBC , basic metabolicpanel. I told the mother I try to call her with results later today,I told herto stop takingthe Keflex. I think it's okay to start on the meloxicam. The phone number that she wants to be call that72xuan [phone] Ordered: Postoperative Est [id number] Orders: Basic Metabolic Panel CBC w/ Differential Addendum She is also having some nausea as well.. by Claude Walsh MD on August 02, 2015 12:56:14 CDT
--- OUTSIDE RECORDS SUMMARY | 2018-09-06 12:20 | XMS REPORT | Referral Summary ---
Author Author [facility] Organization [facility] Address Unknown Phone Unavailable Care Team Providers Care Etch Operator Semiconductor Wafers Name Role Phone Kellee Barclay PCP Encounter VC Date(s): 07/25/15 - 07/25/15 [facility] [address] [place], [place] [address] Discharge Diagnosis: Unspecified orthopedic aftercare Discharge Diagnosis: Unspecified orthopedic aftercare Discharge Disposition: 01-Home or Self Care Attending Physician: Gerson Landry Admitting Physician: Gerson Landry Vital Signs Most recent to 1 oldest [Reference Range]: Respiratory Rate 18 br/min [14-20 br/min] (07/25/15 3:40 PM) Problem List Condition Effective Dates Status [...] N&V Active Medications No Known Medications Results Microbiology Reports TEST: Fluid Culture and Smear STATUS: Auth (Verified) BODY SITE: SOURCE: Synovial Fluid COLLECTED DATE/TIME: 07/25/15 4:05 PM Gram Smear Rare (0-1/OIF) white blood cells No microorganisms observed Immunizations Vaccine Date Refusal Reason tetanus/diphth/pertuss (Tdap) [...] joint-MAJOR1 07/12/15 L Knee Part. Synovectomy 11/08/13 [place] teeth extracted [id number] POST OP GLOBAL [place] 10-08-15 Social History Social History Type Response Smoking Status Never smoker Assessment and Plan Extracted from: Title: Office Visit Note Author: Gerson Landry Date: 07/25/15 Assessment/Plan Knee pain Ordered: Cell Count w/ Diff Body Fluid Crystal Exam, Synovial Fluid Fluid Culture and Smear Unspecified orthopedic aftercare, Unspecified orthopedic aftercare Plan: Talked to the patient and her mother about treatment options I would strongly recommend aspiration of her knee which I had recommended during her previous visit which they refused but today they are willing to have her knee aspirated. Also get have her take Toradol 3 times a day for 5 days and also Neurontin 100 mg at bedtime and we gave him a refill on the tramadol. We will call her mother with the results to the cell count once that's done and her mother's name is Nichelle and her phone number is [phone]. We'll see her back in a week to ensure that things are improving. Also talked with them about possibly switching they're therapy location to [facility] since the [facility] services wait to see them is approximately 2 weeks from when the therapy request was provided.. Ordered: Postoperative Est [id number] Return to Clinic Orders: gabapentin, 100 mg 1 caps, Oral, Bedtime (once a day), # 30 caps, 0 Refill(s), Pharmacy: [facility] #[id number], 1 caps Oral Bedtime (once a day) ketorolac, 10 mg 1 tabs, Oral, TID, as needed for pain, # 15 tabs, 0 Refill(s) , Pharmacy: [facility] #[id number], 1 tabs Oral TID,PRN:as needed for pain traMADol, See Instructions, take 1 tablet by mouth every 4-6 hrs as needed for pain, # 40 tabs, 0 Refill(s)
--- OUTSIDE RECORDS SUMMARY | 2018-09-06 12:20 | XMS REPORT | Referral Summary ---
Author Author [facility] Organization [facility] Address Unknown Phone Unavailable Care Team Providers Care Physical Biochemist Name Role Phone Mark Anthony Ramirez PCP Encounter VC Date(s): 08/10/15 - 08/10/15 [facility] [address] [place], [place] [address] Discharge Diagnosis: Unspecified orthopedic aftercare Discharge Disposition: 01-Home or Self Care Attending Physician: Gerson Landry Admitting Physician: Gerson Landry Vital Signs Most recent to 1 oldest [Reference Range]: Respiratory Rate 18 br/min [14-20 br/min] (08/10/15 3:24 PM) Problem List Condition Effective Dates Status [...] joint-MAJOR1 07/12/15 L Knee Part. Synovectomy 11/08/13 [place] teeth extracted [id number] POST OP GLOBAL ENDS 10-08-15 Social History Social History Type Response Smoking Status Never smoker Assessment and Plan Extracted from: Title: Office Visit Note Author: Gerson Landry Date: 08/10/15 Assessment/Plan Unspecified orthopedic aftercare Plan: One her to continue to work on bridging exercises to help with extension, quadriceps sets to help with strengthening and to do low impact activities like walking. She'll continue her therapy couple times a week for the next 3 weeks. Like to see her back in 3 weeks to ensure that things are improving. If there are concerns problems or questions at any point they're to call. Ordered: Postoperative Est [id number] Request for Therapies Return to Clinic
--- OUTSIDE RECORDS SUMMARY | 2018-09-06 12:21 | XMS REPORT | Referral Summary ---
Author Author [facility] Organization [facility] Address Unknown Phone Unavailable Care Team Providers Care Hyster Machine Operator Name Role Phone Kellee Barclay PCP Encounter VC Date(s): 10/03/15 - 10/03/15 [facility] [address] [place], [place] [address] Discharge Diagnosis: Unspecified orthopedic aftercare Discharge Diagnosis: Open wound of right knee Discharge Disposition: 01-Home or Self Care Attending Physician: Gerson Landry Admitting Physician: Gerson Landry Vital Signs Most recent to 1 oldest [Reference Range]: Respiratory Rate 18 br/min [14-20 br/min] (10/03/15 2:58 PM) Problem List Condition Effective Dates Status [...] joint-MAJOR1 07/12/15 L Knee Part. Synovectomy 11/08/13 [place] teeth extracted [id number] POST OP GLOBAL ENDS 10-08-15 Social History Social History Type Response Smoking Status Never smoker Assessment and Plan Extracted from: Title: Office Visit Note Author: Gerson Landry Date: 10/03/15 Assessment/Plan 2.Open wound of right knee Plan: Dr. Walsh evaluated patient during this visit and recommended that she see Dr. Patrick in plastic surgery. His palate scheduled to be seen on Friday, October 09 at 2:00. Unspecified orthopedic aftercare Plan: Regarding her knee to see her back on an as-needed basis if she has recurrent swelling or other problems she is to call our office and we would see her right away. If there are questions or concerns at any point she is to contact us immediately. Ordered: Postoperative Est [id number]
--- OUTSIDE RECORDS SUMMARY | 2018-09-06 12:21 | XMS REPORT | Referral Summary ---
Author Author [facility] Organization [facility] Address Unknown Phone Unavailable Care Team Providers Care Filament Maker Name Role Phone Kellee Barclay PCP Encounter VC Date(s): 01/18/16 - 01/18/16 [facility] [address] [place], [place] [address] Discharge Disposition: 01-Home or Self Care Attending Physician: Claude Walsh MD Admitting Physician: Claude Walsh MD Vital Signs Most recent to 1 oldest [Reference Range]: Respiratory Rate 18 br/min [14-20 br/min] (01/18/16 4:00 PM) Problem List Condition Effective Dates Status [...] Refill(s) Start Date: 11/21/15 Status: Ordered Results Hematology Most recent to 1 oldest [Reference Range]: Sed Rate [0-23] 4 (01/18/16 4:39 PM) Immunizations Vaccine Date Refusal Reason tetanus/diphth/pertuss (Tdap) [...] joint-MAJOR1 07/12/15 L Knee Part. Synovectomy 11/08/13 [place] teeth extracted [id number] POST OP GLOBAL ENDS 10-08-15 Social History Social History Type Response Smoking Status Never smoker Assessment and Plan No data available for this section
--- OUTSIDE RECORDS SUMMARY | 2018-09-06 12:21 | XMS REPORT | Referral Summary ---
Author Author [facility] Organization [facility] Address Unknown Phone Unavailable Care Team Providers Care Retail Leasing Agent Name Role Phone Mark Anthony Ramirez PCP Encounter VC Date(s): 09/05/15 - 09/05/15 [facility] [address] [place], [place] [address] Discharge Diagnosis: Unspecified orthopedic aftercare Discharge Disposition: 01-Home or Self Care Attending Physician: Gerson Landry Admitting Physician: Gerson Landry Vital Signs Most recent to 1 oldest [Reference Range]: Respiratory Rate 18 br/min [14-20 br/min] (09/05/15 3:26 PM) Problem List Condition Effective Dates [...] joint-MAJOR1 07/12/15 L Knee Part. Synovectomy 11/08/13 [place] teeth extracted [id number] POST OP GLOBAL ENDS 10-08-15 Social History Social History Type Response Smoking Status Never smoker Assessment and Plan Extracted from: Title: Office Visit Note Author: Gerson Landry Date: 09/05/15 Assessment/Plan Unspecified orthopedic aftercare Plan: We'll need to keep an eye on that area of scabbing very closely to ensure that he continues to heal. Need to see her back in about 4 weeks atvia sterile that this may take a month or 2 to resolveas long as her no other problems. If this questions concerns or problems at any point she is to call. Ordered: Postoperative Est [id number] Return to Clinic
--- OUTSIDE RECORDS SUMMARY | 2018-09-06 12:21 | XMS REPORT | Referral Summary ---
Author Author [facility] Organization [facility] Address Unknown Phone Unavailable Care Team Providers Care Crown Ironer Operator Name Role Phone Mark Anthony Ramirez PCP Encounter Date(s): 03/15/15 - 03/15/15 [facility] [address] [facility] [place] [address] Discharge Diagnosis: Depression Discharge Diagnosis: Anxiety Discharge [...] joint-MAJOR1 07/12/15 L Knee Part. Synovectomy 11/08/13 [place] teeth extracted [id number] POST OP GLOBAL ENDS 10-08-15 Social History [...] how she is doing before she leaves [facility]. Encouraged her to continue with the counseling to see if she can adjust to this. Ordered: Office Visit Level 3 Est 76753 Depression As above. Ordered: Office Visit Level 3 Est [id number]
--- OUTSIDE RECORDS SUMMARY | 2018-09-06 12:21 | XMS REPORT | Referral Summary ---
Author Author [facility] Organization [facility] Address Unknown Phone Unavailable Care Team Providers Care Caser Up Name Role Phone Kellee Barclay PCP Encounter VC Date(s): 02/01/16 - 02/01/16 [facility] [address] [place], [place] [address] Discharge Diagnosis: Transient synovitis of left knee Discharge Disposition: 01-Home or Self Care Attending Physician: Claude Walsh MD Admitting Physician: Claude Walsh MD Vital Signs Most recent to 1 oldest [Reference Range]: Respiratory Rate 18 br/min [14-20 br/min] (02/01/16 3:11 PM) Problem List Condition Effective Dates Status [...] joint-MAJOR1 07/12/15 L Knee Part. Synovectomy 11/08/13 [place] teeth extracted [id number] POST OP [facility] EN[facility] 10-08-15 Social History Social History Type Response Smoking Status Never smoker Assessment and Plan Extracted from: Title: Office Visit Note Author: Claude Walsh MD Date: 02/01/16 Assessment/Plan Transient synovitis of left knee Said some recurrence synovitis in the going allow her to go back to running track. Recommend she take an anti- inflammatory had a time which she's been doing the past we'll just see her back in as-needed basis. Ordered: Office Visit Level 2 Est 12770
--- OUTSIDE RECORDS SUMMARY | 2018-09-06 12:21 | XMS REPORT | Referral Summary ---
Author Author [facility] Organization [facility] Address Unknown Phone Unavailable Care Team Providers Care Car Salter Name Role Phone Kellee Barclay PCP Encounter VC Date(s): 08/10/15 - 08/10/15 [facility] [address] [place], [place] [address] Discharge Diagnosis: Unspecified orthopedic aftercare Discharge [...] joint-MAJOR1 07/12/15 L Knee Part. Synovectomy 11/08/13 [place] teeth extracted [id number] POST OP [facility] 10-08-15 Social History Social History Type Response [...] point they're to call. Ordered: Postoperative Est [id number] Request for Therapies Return to Clinic
--- OUTSIDE RECORDS SUMMARY | 2018-09-06 12:21 | XMS REPORT | Referral Summary ---
Author Author [facility] Organization [facility] Address Unknown Phone Unavailable Care Team Providers Care Accounting Assistant Name Role Phone Kellee Barclay PCP Encounter VC Date(s): 07/12/15 - 07/12/15 [facility] [address] [place], [place] [address] Discharge Diagnosis: Transient synovitis of left knee Discharge Diagnosis: Impingement syndrome of right shoulder Discharge Disposition: 01-Home or Self Care Attending Physician: Claude Walsh MD Vital Signs Most recent to 1 oldest [Reference Range]: Temperature Temporal 36.6 degC Artery [36.3-37.8 (07/12/15 10:34 AM) degC] Peripheral Pulse 84 bpm Rate [60-100 bpm] (07/12/15 10:34 AM) Respiratory Rate 16 br/min [14-20 br/min] (07/12/15 10:34 AM) Blood Pressure 97/60 mmHg [90-140/60-90 mmHg] (07/12/15 10:34 AM) SpO2 97 % (07/12/15 10:34 AM) Problem List Condition Effective Dates Status [...] Status: Ordered Results Microbiology Reports TEST: Gram Smear1 STATUS: Auth (Verified) BODY SITE: Knee, Left SOURCE: Synovial Fluid COLLECTED DATE/TIME: 07/12/15 1:08 PM Gram Smear Rare (0-1/OIF) white blood cells No microorganisms observed TEST: Fluid Culture2 STATUS: Auth (Verified) BODY SITE: Knee, Left SOURCE: Synovial Fluid COLLECTED DATE/TIME: 07/12/15 1:05 PM Fluid Culture No growth INTERPRETIVE DATA [id number] Fluid Cluture [id number] GRAM STAIN Immunizations Vaccine Date Refusal Reason tetanus/diphth/pertuss (Tdap) [...] Diagnosis Body Site Arthrocentesis, aspiration and/or injection, 07/12/15 major joint or bursa (eg, shoulder, hip, knee, subacromial bursa); without ultrasound guidance Arthrocentesis, aspiration and/or injection, 07/12/15 major joint or bursa (eg, shoulder, hip, knee, subacromial bursa); without ultrasound guidance Arthrocentesis, aspiration and/or injection, 07/12/15 major joint or bursa (eg, shoulder, hip, knee, subacromial bursa); without ultrasound guidance Arthrocentesis, aspiration and/or injection, 07/12/15 major joint or bursa (eg, shoulder, hip, knee, subacromial bursa); without ultrasound guidance Arthrocentesis, aspiration and/or injection, 07/12/15 major joint or bursa (eg, shoulder, hip, knee, subacromial bursa); without ultrasound guidance Arthrocentesis, aspiration and/or injection, 07/12/15 major joint or bursa (eg, shoulder, hip, knee, subacromial bursa); without ultrasound guidance Arthroscopic synovectomy knee joint-MAJOR1 07/12/15 Arthroscopy, knee, surgical; synovectomy, 07/12/15 major, 2 or more compartments (eg, medial or lateral) Arthroscopy, knee, surgical; synovectomy, 07/12/15 major, 2 or more compartments (eg, medial or lateral) Arthroscopy, knee, surgical; synovectomy, 07/12/15 major, 2 or more compartments (eg, medial or lateral) Arthroscopy, knee, surgical; synovectomy, 07/12/15 major, 2 or more compartments (eg, medial or lateral).. Arthroscopy, knee, surgical; synovectomy, 07/12/15 major, 2 or more compartments (eg, medial or lateral).. Arthroscopy, knee, surgical; synovectomy, 07/12/15 major, 2 or more compartments (eg, medial or lateral).. Arthroscopy, knee, surgical; synovectomy, 07/12/15 major, 2 or more compartments (eg, medial or lateral).. L Knee Part. Synovectomy 11/08/13 [place] teeth extracted [id number] POST OP GLOBAL ENDS 10-08-15 Social History Social History Type Response Smoking Status Never smoker Assessment and Plan Extracted from: Title: Ambulatory Patient Education Author: Yolanda Moody RN Date: 07/12/15 Polar Pack Post Operative Instructions Following your operative procedure, a polar pack has been applied to your extremity. A polar pack is a cooling device used to help decrease pain and swelling. There are various types of polar packs, but they all incorporate ice and water as the coolants. The polar pack should be used for the length of time prescribed by your surgeon. The polar pack consists of two separate devices: the pad that is placed over your extremity and the container that holds the ice and water. The container has hoses that quick connect into the pad. This should be disconnected prior to getting up and walking anywhere. The container that holds the ice and water can be refilled as the ice and water decreases. The inside of the polar pack has a marking as to how full to fill it with water. The polar pack and your dressing should not be stopped until your post- operative instructions indicate that you can do so. The polar pack pad should NOT be placed directly on your skin as it could cause serious injury! [facility] [phone] Post Operative Instructions Activities Ambulate Yes - Weight Bearing as tolerated Diet: Begin with liquids and light foods then progress to regular diet. Personal hygiene: Shower after 72 hours At Home care Remove dressing in 48 hours, cover steri-strips with bandades Apply ice to area for 72 hours, longer as needed Other: Take it easy for first 2 days then begin gentle knee range of motion. Do NOT remove steri-strips If any problems occur or if you have any further questions, please contact your physician. In an emergency, call [phone] ([phone]), if you cannot reach your physician. If you find that you cannot contact your physician, but feel that your signs and symptoms warrant a physician s attention, go to an Emergency room which is the closest to you. Prescription given for discomfort. Use as directed. Do NOT drive or operate hazardous machinery for 24 hours or while taking pain medication. Do not sign any important documents or make important decisions for 24 hours following surgery. When taking pain medicine, be careful as you walk or climb stairs as dizziness is not unusual. Check temperature every four hours during the day for two days. Call if temp over 101. Next dose of pain medicine may be given at Follow Up With: Where: When: Mark Anthony Ramirez [address] [place] [address] Business (1) Within 3 to 5 days Comments: Follow Up With: Where: When: Claude Walsh [address] [facility]; [place] [address] Business (1) In 6 days 07/18/2015 Comments: Appointment Scheduled Extracted from: Title: Admission H & P Author: Gerson Landry Date: 07/11/15 Assessment/Plan Impression:Left kneesynovitisandright shoulder impingement Plan: Patient her parents were counseled on treatment options with the current recommendation to do a left knee arthroscopywith partial synovectomy. Dr. Walsh is also going to do aright shouldersubacromialinjection that will be doneunder general anesthesiaand during surgery on her knee. Patient andher parents were counseled on risks, complications, benefits of surgery alternative treatments and postoperative care. They expressed an understanding of the counseling agreed to proceed with surgical treatment. These procedures are scheduled to be done at the [facility] surgery Center on 07/12/2015. These procedures will be done under general anesthesia and she'll be scheduled as an outpatient. Addendum No change in health history. by Claude Walsh MD on July 12, 2015 07:19:15 CDT
--- OUTSIDE RECORDS SUMMARY | 2018-09-06 12:22 | XMS REPORT | Continuity of Care Document ---
Author Author Dandre REDDING, [facility] Ambulatory Address Unknown Phone Unavailable Care Team Providers Care Software Implementation Project Manager Name Role Phone Mark Anthony Ramirez PP Unavailable Payers Payer name Insurance type Covered alliance party ID Authorization(s) Unknown Problems Condition Effective Dates (start - stop) Clinical Status Pain in joint involving lower leg - *Acute Follow-up examination, following other surgery - *Acute Acute tonsillitis - *Acute Pain in joint involving lower leg - *Acute Family History Family Member Diagnosis Age At Onset Status Paternal grandmother (Unknown) Cancer Yes Maternal grandmother (Unknown) Cancer - uterine Yes Social History Social History Element Description Quantity Unknown Allergies, Adverse Reactions, Alerts Substance Reaction Severity Status Unknown Medications Medication Instructions Dosage Effective Dates (start - stop) Status ibuprofen 400 mg tablet take 1 tablet (400MG) by oral route every 4 - 6 hours as needed 400 MG - Active meloxicam 7.5 mg tablet take 1 tablet (7.5MG) by oral route every day 7.5 MG - Active airbornne - Active Percocet 5 mg-325 mg tablet take 1 - 2 Tablet by oral route every 4 - 6 hours as needed 0 - Active Dilaudid 2 mg tablet take 1 - 2 Tablet (2MG) by oral route every 4 - 6 hours as needed 2 MG - Active Immunizations Vaccine Date Status Comments DTaP completed - Completed reason: source unspecified Tdap (Boostrix ) completed - Completed reason: source unspecified Hib (HbOC) completed - Completed reason: source unspecified Hib (HbOC) completed - Completed reason: source unspecified Hib (HbOC) completed - Completed reason: source unspecified hep B (ped/adol, 3 dose) completed - Completed reason: source unspecified hep B (ped/adol, 3 dose) completed - Completed reason: source unspecified hep B (ped/adol, 3 dose) completed - Completed reason: source unspecified MMR completed - Completed reason: source unspecified MMR completed - Completed reason: source unspecified varicella completed - Completed reason: source unspecified DTaP completed - Completed reason: source unspecified DTaP completed - Completed reason: source unspecified DTaP completed - Completed reason: source unspecified DTaP completed - Completed reason: source unspecified Hib (HbOC) completed - Completed reason: source unspecified OPV completed - Completed reason: source unspecified polio, inactivated (IPV) completed - Completed reason: source unspecified OPV completed - Completed reason: source unspecified OPV completed - Completed reason: source unspecified OPV completed - Completed reason: source unspecified MCV4 completed - Completed reason: source unspecified varicella completed - Completed reason: source unspecified Results Test Name Date and Time Measure Units Reference Range Abnormal Flag Comments Unknown Vital Signs Date / Time: Height Weight Pulse Rate Blood Pressure Temperature /13:00:00 67.75 in 124.25 lbs 82 /min 102/64 mm[Hg] Procedures Procedure Date Unknown Encounters Encounter Location Date Patient Visit [facility] FM Patient Visit [facility] Ortho Patient Visit [facility] ASC Patient Visit [facility] Ortho Patient Visit [facility] FM Patient Visit [facility] FM Patient Visit Conversion Advance Directives Directive Effective Date Unknown
--- OUTSIDE RECORDS SUMMARY | 2018-09-06 12:22 | XMS REPORT | Referral Summary ---
Author Organization Unknown Address Unknown Phone Unavailable Care Team Providers Care Field Service Technician Poultry Name Role Phone Mark Anthony Ramirez PCP Encounter [facility] Date(s): 11/23/14 - [facility] [address], [place] [address] Discharge Diagnosis: Anxiety Discharge Diagnosis: Depression Discharge Disposition: Home or Self Care Attending Physician: Mark Anthony Ramirez MD Admitting Physician: Mark Anthony Ramirez MD Vital Signs Most recent to 1 oldest [Reference Range]: Peripheral Pulse 88 bpm Rate [55-90 bpm] (11/23/14 11:22 AM) Respiratory Rate 12 br/min [14-20 br/min] *LOW* (11/23/14 11:22 AM) Blood Pressure 98/58 mmHg [90-138/45-84 mmHg] (11/23/14 11:22 AM) Problem List Condition Effective Dates Status Health Status Informant ADD(Confirmed) Active ADHD(Confirmed) Active WCC (well child Active check)(Confirmed) Impingement syndrome Active of right shoulder(Confirmed) Allergies, Adverse Reactions, Alerts Substance Reaction Severity Status Lortab Active Medications Advil mg, Oral, 0 Refill(s) Start Date: 04/25/14 Status: Ordered Ambien 5 mg oral tablet 1 tabs, Oral, Bedtime (once a day), as needed for sleep, # 20 tabs, 0 Refill(s) , called to pharmacy (Rx) Start Date: 11/23/14 Stop Date: 12/16/14 Status: Ordered sertraline 50 mg oral tablet 1 tabs, Oral, Daily, # 30 tabs, 6 Refill(s), Pharmacy: [id number], 1 tabs Oral Daily Start Date: 11/23/14 Status: Ordered Results No data available for [...] Procedures Procedure Date Related Diagnosis Body Site L Knee Part. Synovectomy 11/08/13 [place] teeth extracted Social History Social History Type Response Smoking Status Never smoker Assessment and Plan Extracted from: Title: Office Visit Note Author: Mark Anthony Ramirez MD Date: 11/23/14 Assessment/Plan Anxiety We discussed her symptoms with her at length. More than 50% of the 25-30 minute visit was spent in counseling or coordination of care. We discussed treatment options I do think she would benefit from medication. Sertraline to start with 50 mg daily at bedtime. Watch for side effects which we discussed. She says and may take a month to get the full effect of this medicine and return in months we can reevaluate. Also with her sleeping issues and be beneficial for her rest better and will call out Ambien 5 mg use as needed over the course next month until the anxiety improves. Highly encourage her to consider counseling options as well which she's hesitant to do. She does have a counselor school she can see her we can set one up outside of that and she will consider this. Ordered: sertraline, 1 tabs, Oral, Daily, # 30 tabs, 6 Refill(s), Pharmacy: [facility]/ pharmacy #[id number], 1 tabs Oral Daily Depression As above. Ordered: sertraline, 1 tabs, Oral, Daily, # 30 tabs, 6 Refill(s), Pharmacy: [facility]/ pharmacy #[id number], 1 tabs Oral Daily Orders: zolpidem, 1 tabs, Oral, Bedtime (once a day), as needed for sleep, # 20 tabs, 0 Refill(s), called to pharmacy (Rx)
--- OUTSIDE RECORDS SUMMARY | 2018-09-06 12:22 | XMS REPORT ---
Author Author TADEO FAN [facility] Address [address] [place] [address] Phone Unavailable Care Team Providers Care Space Systems Operations Superintendent Name Role Phone TADEO FAN Unavailable Unavailable PROBLEMS Unknown Problems ALLERGIES Substance Reaction Event Type Date Status Percocet vomiting Drug Allergy Feb, Active Loratadine Allergy Relief vomiting Drug Allergy Feb, Active ENCOUNTERS Encounter Location Date Diagnosis [facility] [address] [facility] [id number] [address] Feb, Encounter for physical examination related to employment Z02.1 IMMUNIZATIONS No Known Immunizations SOCIAL HISTORY Never Assessed REASON FOR VISIT [facility]-PHA/vision-Bellamy MA PLAN OF CARE Activity Details Follow Up prn Reason: VITAL SIGNS Height 67.75 in 2018-03-03 Weight 124.6 lbs 2018-03-03 Temperature 98.3 degrees Fahrenheit 2018-03-03 Heart Rate 94 bpm 2018-03-03 Respiratory Rate 16 2018-03-03 Oximetry on room air:98 % 2018-03-03 BMI 19.08 kg/m2 2018-03-03 Blood pressure systolic 102 mmHg 2018-03-03 Blood pressure diastolic 64 mmHg 2018-03-03 MEDICATIONS Medication Instructions Dosage Frequency Start Date End Date Duration Status Xanax 0.25 MG Orally Once a day 1 tablet 24h Active Topamax 25 MG Orally Once a day 1 tablet 24h Active Lexapro 10 mg Orally Once a day 1.5 tablets 24h Active RESULTS No Results PROCEDURES Procedure Date Ordered Result Body Site VISUAL ACUITY SCREEN March 03, 2018 INSTRUCTIONS MEDICATIONS ADMINISTERED No Known Medications MEDICAL (GENERAL) HISTORY Type Description Date Medical History depression Medical History Anxiety disorder Surgical History arthroscopic knee surgery x3 on left knee 2013, 2014, 2015 Surgical History tonsillectomy 2017 Surgical History wisdom teeth extraction 2012 Surgical History TMJ 2017
--- OUTSIDE RECORDS SUMMARY | 2018-09-06 12:22 | XMS REPORT | Referral Summary ---
Author Author [facility] Organization [facility] Address Unknown Phone Unavailable Care Team Providers Care Gas Operation Manager Name Role Phone Kellee Barclay PCP Encounter [facility] [id number] Date(s): 12/23/16 - 12/23/16 [facility] [address] [place], [place] [address] Discharge Diagnosis: Chronic tonsillitis Discharge Disposition: 01-Home or Self Care Attending Physician: Molly Barlow DO Admitting Physician: Molly Barlow DO Referring Physician: Kellee Barclay MD Vital Signs Most recent to 1 oldest [Reference Range]: Peripheral Pulse 92 bpm Rate [60-100 bpm] (12/23/16 4:37 PM) Blood Pressure 96/60 mmHg [90-140/60-90 mmHg] (12/23/16 4:37 PM) SpO2 99 % (12/23/16 4:37 PM) Problem List Condition Effective Dates Status [...] joint-MAJOR1 07/12/15 L Knee Part. Synovectomy 11/08/13 [place] teeth extracted [id number] POST OP GLOBAL ENDS 10-08-15 Social History Social History Type Response Smoking Status Never smoker Assessment and Plan Extracted from: Title: Office Visit Note Author: Molly Barlow DO Date: 12/23/16 Assessment/Plan Chronic tonsillitis No further restrictions. Follow-up as needed.
--- OUTSIDE RECORDS SUMMARY | 2018-09-06 12:22 | XMS REPORT | Referral Summary ---
Author Author [facility] Organization [facility] Address Unknown Phone Unavailable Care Team Providers Care Building Construction Foreman Name Role Phone Kellee Barclay PCP Encounter VC Date(s): 09/05/15 - 09/05/15 [facility] [address] [place], [place] [address] Discharge Diagnosis: Unspecified orthopedic aftercare [...] joint-MAJOR1 07/12/15 L Knee Part. Synovectomy 11/08/13 [place] teeth extracted [id number] [facility] ? IO 10-08-15 Social History Social History Type Response [...] she is to call. Ordered: Postoperative Est [id number] Return to Clinic
--- OUTSIDE RECORDS SUMMARY | 2018-09-06 12:22 | XMS REPORT | Continuity of Care Document ---
Author Author James ARGUELLES P [facility] Ambulatory Address [address] [place] [address] Phone Care Team Providers Care Lighter Name Role Phone Mark Anthony Ramirez PP Unavailable Payers Payer name Insurance type Covered republican ID Authorization(s) Unknown Problems Condition Effective Dates (start - stop) Clinical Status Bicipital tenosynovitis - *Chronic Pain in joint involving lower leg - *Acute Acute tonsillitis - *Acute Upper Respiratory Infection, Acute - *Acute Pharyngitis, Acute - *Acute Pain in joint involving lower leg - *Acute Follow-up examination, following other surgery - *Acute Follow-up examination, following other surgery - *Acute Family History Family Member Diagnosis [...] hours as needed 400 MG - Active airbornne - Active Immunizations Vaccine Date Status Comments Hib (HbOC) completed - Completed reason: source unspecified Hib (HbOC) completed - Completed reason: source unspecified Hib (HbOC) completed - Completed reason: source unspecified Hib (HbOC) completed - Completed reason: source unspecified DTaP completed - Completed reason: source unspecified DTaP completed - Completed reason: source unspecified DTaP completed - Completed reason: source unspecified DTaP completed - Completed reason: source unspecified DTaP completed - Completed reason: source unspecified MMR completed - Completed reason: source unspecified MMR completed - Completed reason: source unspecified OPV completed - Completed reason: source unspecified OPV completed - Completed reason: source unspecified OPV completed - Completed reason: source unspecified OPV completed - Completed reason: source unspecified polio, inactivated (IPV) completed - Completed reason: source unspecified Tdap (Boostrix ) completed - Completed reason: source unspecified varicella completed - Completed reason: source unspecified varicella completed - Completed reason: source unspecified MCV4 completed - Completed reason: source unspecified hep B (ped/adol, 3 dose) completed - Completed reason: source unspecified hep B (ped/adol, 3 dose) completed - Completed reason: source unspecified hep B (ped/adol, 3 dose) completed - Completed reason: source unspecified Results Test Name Date and Time Measure Units Reference Range Abnormal Flag Comments Unknown Vital Signs Date / Time: Height Weight Pulse Rate Blood Pressure Temperature /10:26:00 68.50 in 126.38 lbs 84 /min 106/72 mm[Hg] Procedures Procedure Date Unknown Encounters Encounter Location Date Patient Visit [address] Patient Visit [place] [address] FM Patient Visit [facility] Ortho Patient Visit [place] [address] FM Patient Visit [facility] Care Patient Visit [facility] FM Patient Visit [facility] Ortho Patient Visit [facility] Ortho Patient Visit [facility] Advance Directives Directive Effective Date Unknown
--- OUTSIDE RECORDS SUMMARY | 2018-09-06 12:22 | XMS REPORT | Referral Summary ---
Author Author [facility] Organization [facility] Address Unknown Phone Unavailable Care Team Providers Care Hand Winder Name Role Phone Kellee Barclay PCP Encounter [facility] Date(s): 06/05/17 - 06/05/17 [facility] [address] [place], [place] [address] Discharge Disposition: 01-Home or Self Care Attending Physician: Kellee Barclay MD Admitting Physician: Kellee Barclay MD Vital Signs No data available for [...] tabs, 3 Refill(s), Indication: Irregular periods, Pharmacy: [facility] #[id number] Start Date: 05/01/17 Status: Ordered Miscellaneous DME [...] joint-MAJOR1 07/12/15 L Knee Part. Synovectomy 11/08/13 [place] teeth extracted [id number] POST OP GLOBAL ENDS 10-08-15 Social History Social History Type Response Smoking Status Never smoker Assessment and Plan No data available for this section
--- OUTSIDE RECORDS SUMMARY | 2018-09-06 12:23 | XMS REPORT | Referral Summary ---
Author Organization Unknown Address Unknown Phone Unavailable Care Team Providers Care Clinical Trials Systems Administrator Name Role Phone Mark Anthony Ramirez PCP Encounter VC Date(s): 12/20/14 - 12/20/14 [facility] [address], [place] [address] Discharge Diagnosis: Tonsillitis Discharge Diagnosis: Anxiety Discharge Diagnosis: Depression Discharge Diagnosis: Insomnia Discharge Disposition: Home or Self Care Attending Physician: Mark Anthony Ramirez MD Admitting Physician: Mark Anthony Ramirez MD Vital Signs Most recent to 1 oldest [Reference Range]: Temperature Oral 36.9 degC [36.0-37.6 degC] (12/20/14 1:36 PM) Peripheral Pulse 91 bpm Rate [55-90 bpm] *HI* (12/20/14 1:36 PM) Respiratory Rate 12 br/min [14-20 br/min] *LOW* (12/20/14 1:36 PM) Blood Pressure 100/58 mmHg [90-138/45-84 mmHg] (12/20/14 1:36 PM) Most recent to 1 oldest [Reference Range]: SpO2 97 % (12/20/14 1:36 PM) Problem List Condition Effective Dates Status Health Status Informant ADD(Confirmed) Active ADHD(Confirmed) Active WCC (well child Active check)(Confirmed) Impingement syndrome Active of right shoulder(Confirmed) Allergies, Adverse Reactions, Alerts Substance Reaction Severity Status Lortab Active Medications Advil mg, Oral, 0 Refill(s) Start Date: 04/25/14 Status: Ordered promethazine-codeine 6.25 mg-10 mg/5 mL oral syrup 5 mL, Oral, q4hr, as needed for cough, # 120 mL, 0 Refill(s), called to pharmacy (Rx) Start Date: 12/20/14 Stop Date: 12/27/14 Status: Ordered sertraline 100 mg oral tablet 1 tabs, Oral, Daily, # 30 tabs, 6 Refill(s), Pharmacy: [facility]/pharmacy #[id number], 1 tabs Oral Daily Start Date: 12/20/14 Status: Ordered Zithromax Z-Carlos 250 mg oral tablet 1 packets, Oral, Daily, as directed on package labeling, X 5 days, # 6 tabs, 0 Refill(s), Pharmacy: [facility]/pharmacy #[id number], 1 packets Oral Daily,x5 days,Instr:as directed on package labeling Special Instructions: as directed on package labeling Start Date: 12/20/14 Stop Date: 12/25/14 Status: Ordered zolpidem Bedtime (once a day), 0 Refill(s) Start Date: 12/20/14 Status: Ordered Results No data available for [...] Body Site L Knee Part. Synovectomy 11/08/13 [place] teeth extracted Social History Social History Type Response Smoking Status Never smoker Assessment and Plan No data available for this section
--- OUTSIDE RECORDS SUMMARY | 2018-09-06 12:23 | XMS REPORT | Continuity of Care Document ---
Author Author [facility] Organization [facility] Address Unknown Phone Unavailable Allergies There is no data. Medications There is no data. Problems There is no data. Procedures There is no data. Results There is no data. Encounters ACCT No. Visit Date/Time Discharge Status Pt. Type Provider Facility Loc./Unit Complaint [id number] 02/04/2014 10:23:00 02/04/2014 23:59:59 CLS Outpatient [id number] 12/22/2013 19:09:00 12/22/2013 23:59:59 CLS Outpatient [id number] 11/12/2013 13:59:00 11/12/2013 23:59:59 CLS Outpatient [id number] 10/18/2013 08:23:00 10/18/2013 23:59:59 CLS Outpatient [id number] 10/12/2013 12:54:00 10/12/2013 23:59:59 CLS Outpatient
--- OUTSIDE RECORDS SUMMARY | 2018-09-06 12:23 | XMS REPORT | Continuity of Care Document ---
Author Author Roxanna Landry PA-C [facility] Address [address] [place] [address] Phone Care Team Providers Care Brick Maker Name Role Phone Mark Anthony Ramirez PP Unavailable Payers Payer name Insurance type Covered republican ID Authorization(s) Unknown Problems Condition Effective Dates (start - stop) Clinical Status Follow-up examination, following other surgery - *Acute Pain in joint involving lower leg - *Acute Acute tonsillitis - *Acute Pain [...] Dosage Effective Dates (start - stop) Status Dilaudid 2 mg tablet take 1 - 2 Tablet (2MG) by oral route every 4 - 6 hours as needed 2 MG - Active ibuprofen 400 mg tablet take 1 tablet [...] 6 hours as needed 0 - Active Immunizations Vaccine Date Status Comments [...] Height Weight Pulse Rate Blood Pressure Temperature /14:01:00 68.50 in 115.00 lbs Procedures Procedure Date Unknown Encounters Encounter Location Date Patient Visit [facility] Ortho Patient Visit [facility] E21 FM Patient Visit [facility] Ortho Patient Visit [facility] ASC Patient Visit [facility] FM Patient Visit [facility] FM Patient Visit [facility] Ortho Patient Visit Conversion Advance Directives Directive Effective Date Unknown
--- OUTSIDE RECORDS SUMMARY | 2018-09-06 12:23 | XMS REPORT | Continuity of Care Document ---
Author Author Dandre REDDING, [facility] Address Unknown Phone Unavailable Care Team Providers Care Bingo Cashier Name Role Phone Mark Anthony Ramirez PP Unavailable Payers Payer name Insurance type Covered libertarian ID Authorization(s) Unknown Problems Condition Effective Dates (start - stop) Clinical Status Pain in joint involving lower leg - *Acute Pain in joint involving lower leg - *Acute Follow-up examination, following other surgery - *Acute Acute tonsillitis - *Acute Family History Family Member Diagnosis [...] Height Weight Pulse Rate Blood Pressure Temperature /08:27:00 67.75 in 122.13 lbs 88 /min 98/62 mm[Hg] Procedures Procedure Date Unknown Encounters Encounter Location Date Patient Visit [facility] FM Patient Visit [facility] FM Patient Visit [facility] Ortho Patient Visit [facility] ASC Patient Visit [facility] Ortho Patient Visit [place] [address] FM Patient Visit Conversion Advance Directives Directive Effective Date Unknown
--- OUTSIDE RECORDS SUMMARY | 2018-09-06 12:23 | XMS REPORT | Continuity of Care Document ---
Author Author Vivienne Reyna MD Ambulatory Address [address] [place] [address] Phone Care Team Providers Care Still Pump Operator Name Role Phone Mark Anthony Ramirez PP Unavailable Payers Payer name Insurance type Covered republican ID Authorization(s) Unknown Problems Condition Effective Dates (start - stop) Clinical Status Upper Respiratory Infection, Acute - *Acute Pharyngitis, [...] Height Weight Pulse Rate Blood Pressure Temperature /19:24:00 68.50 in 122.00 lbs 78 /min 124/68 mm[Hg] 97.9 F Procedures Procedure Date Unknown Encounters Encounter Location Date Patient Visit [facility] Care Patient Visit [facility] FM Patient Visit [facility] Ortho Patient Visit [facility] ASC Patient Visit [facility] FM Patient [place] [address] FM Patient Visit [facility] Ortho Patient Visit [facility] Ortho Patient Visit Conversion Advance Directives Directive Effective Date Unknown
[2018-09-06] MEDS: NS IV 1000 ML 1,000 ML IV SCH ×3 (13:00→17:35)
[2018-09-06] MEDS ORDERED: ONDANSETRON 4 MG/2 ML (SDV) Z0FRAN IVP ONE (13:00)
[2018-09-06 13:10] LABS: BASOPHILS % (AUTO) 0 % (0-10); EOSINOPHILS % (AUTO) 1 % (0-10); HEMATOCRIT 40 % (35-52); HEMOGLOBIN 13.4 G/DL (11.5-16.0); LYMPHOCYTES # (AUTO) 2.1 X 10^3 (1.0-4.0); LYMPHOCYTES % (AUTO) 28 % (12-44); MEAN CORPUSCULAR HEMOGLOBIN 29 PG (25-34); MEAN CORPUSCULAR HGB CONC 34 G/DL (32-36); MEAN CORPUSCULAR VOLUME 87 FL (80-99); MEAN PLATELET VOLUME 10.4 FL (7.4-10.4); MONOCYTES # (AUTO) 0.8 X 10^3 (0.0-1.0); MONOCYTES % (AUTO) 11 % (0-12); NEUTROPHILS # (AUTO) 4.4 X 10^3 (1.8-7.8); NEUTROPHILS % (AUTO) 60 % (42-75); PLATELET COUNT 297 10^3/uL (130-400); RED BLOOD COUNT 4.59 10^6/uL (4.35-5.85); RED CELL DISTRIBUTION WIDTH 12.4 % (10.0-14.5); WHITE BLOOD COUNT 7.2 10^3/uL (4.3-11.0)
[2018-09-06] MEDS ORDERED: NS 250 ML (IVPB) BAG IV ONE (13:30)
[2018-09-06] MEDS ORDERED: IOHEXOL 350 MG/ML 100 ML (OMNIPAQUE 350) VIAL IV ONE (13:30)
[2018-09-06] MEDS ORDERED: CATHETER FLUSH 10 ML SYR IV PRN (13:30)
[2018-09-06 13:43] LABS: ALANINE AMINOTRANSFERASE 24 U/L (0-55); ALBUMIN 4.2 GM/DL (3.2-4.5); ALKALINE PHOSPHATASE 64 U/L (40-136); BILIRUBIN,TOTAL 0.4 MG/DL (0.1-1.0); BUN/CREATININE RATIO 14; CALCIUM 9.4 MG/DL (8.5-10.1); CARBON DIOXIDE 22 MMOL/L (21-32); CHLORIDE 110 MMOL/L (98-107); CREATININE SERUM 0.77 MG/DL (0.60-1.30); GFR ESTIMATED > 60; GLUCOSE 93 MG/DL (70-105); LIPASE 16 U/L (8-78); POTASSIUM 4.1 MMOL/L (3.6-5.0); SODIUM 142 MMOL/L (135-145); TOTAL PROTEIN 6.9 GM/DL (6.4-8.2)
--- NOTE | 2018-09-06 13:54 | ED Abdominal Pain ---
General Chief Complaint: Abdominal/GI Problems Stated Complaint: ABD PAIN Source of Information: Patient, Other (patient's significant other) Exam Limitations: No Limitations History of Present Illness Date Seen by Provider: Sep 06, 2018 Time Seen by Provider: 13:00 Initial Comments This 23-year-old white female presents with a 3 year history of persistent abdominal pain worse today. Patient has been evaluated at [facility] at [facility] and is scheduled to see Dr. Donovan for her continued abdominal pain. The patient's lungs and bowel pain as been labeled as possible IBS. Patient denies associated fever, chills, dysuria, vomiting or diarrhea. The patient uses control pills. She has missed her last period but denies possibility of . Patient denies vaginal discharge, STD, or dyspareunia. Over the last 3 years the patient has tried altering diets without improvement. The patient has recurrent nausea and vomiting with associated diarrhea on approximately every 3 day cycle. Allergies and Home Medications Allergies Coded Allergies: No Known Drug Allergies (Unverified , 09/06/18) Patient Home Medication List Home Medication List Reviewed: Yes Review of Systems Review of Systems Constitutional: No chills, No fever EENTM: No Blurred Vision Respiratory: Denies Cough Cardiovascular: Denies Chest Pain Gastrointestinal: Abdominal Pain; Denies Diarrhea Genitourinary: Denies Discharge, Denies Frequency, Denies Urgency; Other ( patient missed her last period.) Musculoskeletal: No back pain Skin: No rash Psychiatric/Neurological: No Symptoms Reported Endocrine: No Symptoms Reported Hematologic/Lymphatic: No Symptoms Reported Past Aeragbp-Iuntbd-Lhrrti Hx Past Med/Social Hx: Reviewed Nursing Past Med/Soc Hx Patient Social History Recent Foreign Travel: No Contact w/Someone Who Travel: No Physical Exam Vital Signs Vital Signs - First Documented 09/06/18 13:57 Temp 97.4 Pulse 87 Resp 18 B/P (MAP) 122/76 (91) Pulse Ox 100 Capillary Refill : Height/Weight/BMI Height: '" Weight: lbs. oz. kg; BMI Method: General Appearance: WD/WN, mild distress HEENT: normal ENT inspection Neck: full range of motion, supple Respiratory: lungs clear Cardiovascular: regular rate, rhythm, no murmur Gastrointestinal: normal bowel sounds, non tender Extremities: normal range of motion, non-tender Back: normal inspection Neurologic/Psychiatric: no motor/sensory deficits, alert, normal mood/affect Skin: normal color, warm/dry Progress/Results/Core Measures Results/Orders Lab Results Laboratory Tests Test 09/06/18 13:00 Range/Units White Blood Count 7.2 4.3-11.0 10^3/uL Red Blood Count 4.59 4.35-5.85 10^6/uL Hemoglobin 13.4 11.5-16.0 G/DL Hematocrit 40 35-52 % Mean Corpuscular Volume 87 80-99 FL Mean Corpuscular Hemoglobin 29 25-34 PG Mean Corpuscular Hemoglobin Concent 34 32-36 G/DL Red Cell Distribution Width 12.4 10.0-14.5 % Platelet Count 297 130-400 10^3/uL Mean Platelet Volume 10.4 7.4-10.4 FL Neutrophils (%) (Auto) 60 42-75 % Lymphocytes (%) (Auto) 28 12-44 % Monocytes (%) (Auto) 11 0-12 % Eosinophils (%) (Auto) 1 0-10 % Basophils (%) (Auto) 0 0-10 % Neutrophils # (Auto) 4.4 1.8-7.8 X 10^3 Lymphocytes # (Auto) 2.1 1.0-4.0 X 10^3 Monocytes # (Auto) 0.8 0.0-1.0 X 10^3 Eosinophils # (Auto) 0.0 0.0-0.3 10^3/uL Basophils # (Auto) 0.0 0.0-0.1 10^3/uL Sodium Level 142 135-145 MMOL/L Potassium Level 4.1 3.6-5.0 MMOL/L Chloride Level 110 H 98-107 MMOL/L Carbon Dioxide Level 22 21-32 MMOL/L Anion Gap 10 5-14 MMOL/L Blood Urea Nitrogen 11 7-18 MG/DL Creatinine 0.77 0.60-1.30 MG/DL Estimat Glomerular Filtration Rate > 60 BUN/Creatinine Ratio 14 Glucose Level 93 70-105 MG/DL Calcium Level 9.4 8.5-10.1 MG/DL Corrected Calcium 9.2 8.5-10.1 MG/DL Total Bilirubin 0.4 0.1-1.0 MG/DL Aspartate Amino Transf (AST/SGOT) 19 5-34 U/L Alanine Aminotransferase (ALT/SGPT) 24 0-55 U/L Alkaline Phosphatase 64 40-136 U/L Total Protein 6.9 6.4-8.2 GM/DL Albumin 4.2 3.2-4.5 GM/DL Lipase 16 8-78 U/L My Orders Orders - KELLY PETERSEN MD Comprehensive Metabolic Panel (09/06/18 12:54) Lipase (09/06/18 12:54) Ua Culture If Indicated (09/06/18 12:54) Cbc With Automated Diff (09/06/18 12:54) Ct Abd/Pelv W (Appendicitis) (09/06/18 12:54) Ondansetron Injection (Zofran Injectio (09/06/18 13:00) Ns Iv 1000 Ml (Sodium Chloride 0.9%) (09/06/18 13:00) Iohexol Injection (Omnipaque 350 Mg/Ml 1 (09/06/18 13:30) Sodium Chloride Flush (Catheter Flush Sy (09/06/18 13:30) Pharmacy Communication (Pharmacy Communi (09/06/18 13:23) Ns (Ivpb) (Sodium Chloride 0.9%) (09/06/18 13:30) Fentanyl Injection (Sublimaze Injection (09/06/18 14:15) Ns Iv 1000 Ml (Sodium Chloride 0.9%) (09/06/18 14:15) Hcg,Qualitative Urine (09/06/18 14:50) Cipro 400 Mg Ivpb (1x Dose) (09/06/18 15:00) Flagyl 500 Mg Iv (1x Dose) (09/06/18 15:00) Medications Given in ED Current Medications Medications Dose Ordered Sig/Guido Route Start Time Stop Time Status Last Admin Dose Admin Fentanyl Citrate 50 mcg ONCE ONCE IVP 09/06/18 14:15 09/06/18 14:16 DC 09/06/18 14:13 50 MCG Iohexol 100 ml ONCE ONCE IV 09/06/18 13:30 09/06/18 13:31 DC 09/06/18 13:47 75 ML Ondansetron HCl 4 mg ONCE ONCE IVP 09/06/18 13:00 09/06/18 13:01 DC 09/06/18 13:00 4 MG Sodium Chloride 10 ml NEEDED PRN IV 09/06/18 13:30 09/06/18 13:47 10 ML Sodium Chloride 250 ml ONCE ONCE IV 09/06/18 13:30 09/06/18 13:31 DC 09/06/18 13:47 80 ML Vital Signs/I&O 09/06/18 13:57 Temp 97.4 Pulse 87 Resp 18 B/P (MAP) 122/76 (91) Pulse Ox 100 Progress Progress Note : Time: 15:02 Progress Note Although the patient's laboratory evaluation of her CBC was unremarkable there was on CT a question of an appendicitis. Dr. SHANKAR was kind enough to admit the patient. We discussed her treatment and have initiated IV Flagyl and Cipro. Patient will be nothing by mouth after 3 a.m. Departure Communication (Admissions) Time/Spoke to Admitting Phy: 15:03 Dr. Shankar Impression Primary Impression: Appendicitis Qualified Codes: K35.80 - Unspecified acute appendicitis Disposition: ADMITTED INPATIENT Condition: Improved Admissions Decision to Admit Reason: Admit from ER (General) Decision to Admit/Date: Sep 06, 2018 Time/Decision to Admit Time: 15:05 Departure-Patient Inst. Referrals: [facility] (PCP) Primary Care Physician HARRIET CORONA (Family) Primary Care Physician KELLY PETERSEN MD Sep 06, 2018 13:54
[2018-09-06] MEDS ORDERED: RECEIVED CONTRAST (Hold Metformin) IV SCH (14:00)
[2018-09-06] MEDS ORDERED: fentaNYL INJECTION 100 MCG/2 ML AMP IVP ONE (14:15)
[2018-09-06] MEDS ORDERED: NS IV 1000 ML 1,000 ML IV SCH (14:15)
--- NOTE | 2018-09-06 14:42 | Diagnostic Imaging Report ---
PROCEDURE: CT abdomen and pelvis with contrast, rule out appendicitis. TECHNIQUE: Multiple contiguous axial images were obtained through the abdomen and pelvis after the administration of intravenous contrast. INDICATION: Abdominal pain, right side lower abdomen. Mild sharp pain/vomiting diarrhea and lightheadedness. Symptoms for [address] abdomen and pelvis with contrast 09/06/2018. COMPARISON: None. FINDINGS: There is fatty infiltration and inflammatory change about the cecum and right lower quadrant extending into the pelvis. The appendix however is not visualized. Within the lower pelvic region there is some free fluid right greater than left. There are tiny cystic changes in both ovaries which are likely follicles. The largest area on the left persists peripheral enhancement perhaps a corpus luteal cyst. This measures 19 mm in greatest dimension. No free are appreciated. The remaining bowel loops unremarkable. The liver is unremarkable. The spleen, pancreas and adrenal glands normal. Gallbladder within normal limits. Kidneys demonstrate no acute abnormality. A few tiny cystic changes too small characterize. No acute osseous abnormality is appreciated. Visualized lung bases clear. IMPRESSION: 1. Fat stranding and inflammatory process in the right lower quadrant adjacent to cecum. This does raise the question of possible acute appendicitis however the appendix itself is not seen and clinical correlation with symptoms as well as recommended. If there is continued concern for acute appendicitis surgical consultation and/or followup imaging short-term followup recommended. 2. Fat stranding and fluid in the pelvis which could be secondary to a possible process but a possible appendicitis versus recent rupture of this ovarian cyst. There does appear to be a cystic area in the left ovary as noted above. If clinically warranted sonography could further evaluate. 3. Other findings as above. Dictated by: Dictated on workstation # [id number]
[2018-09-06] MEDS ORDERED: metroNIDAZOLE 500MG/100ML IVPB 100 ML IV ONE (15:00)
[2018-09-06] MEDS ORDERED: CIPROFLOXACIN IV 400MG/200ML 200 ML IV ONE (15:00)
[2018-09-06 15:12] LABS: BILIRUBIN,URINE NEGATIVE (NEGATIVE); CLARITY,URINE SLIGHTLY CLOUDY; COLOR,URINE RED; GLUCOSE, URINE (UA) NEGATIVE (NEGATIVE); KETONES,URINE NEGATIVE (NEGATIVE); LEUKOCYTE ESTERASE ,URINE 2+ (NEGATIVE); NITRITE,URINE POSITIVE (NEGATIVE); PH,URINE 5 (5-9); PROTEIN,URINE 2+ (NEGATIVE); UROBILINOGEN,URINE NORMAL (NORMAL)
[2018-09-06 15:28] LABS: BACTERIA,URINE NEGATIVE /HPF; RBC,URINE TNTC /HPF; SQUAMOUS EPITHELIAL CELL,UR 0-2 /HPF
--- OUTSIDE RECORDS SUMMARY | 2018-09-06 15:28 | XMS REPORT | Continuity of Care Document ---
Author Author [facility] Organization [facility] Address Unknown Phone Unavailable Allergies There is no data. Medications There is no data. Problems There is no data. Procedures There is no data. Results There is no data. Encounters ACCT No. Visit Date/Time Discharge Status Pt. Type Provider Facility Loc./Unit Complaint [id number] 02/04/2014 10:23:00 02/04/2014 23:59:59 CLS Outpatient [id number] 12/22/2013 19:09:00 12/22/2013 23:59:59 CLS Outpatient [id number] 11/12/2013 13:59:00 11/12/2013 23:59:59 CLS Outpatient [id number] 10/18/2013 08:23:00 10/18/2013 23:59:59 CLS Outpatient [id number] 10/12/2013 12:54:00 10/12/2013 23:59:59 CLS Outpatient
[2018-09-06] MEDS ORDERED: FLU QUADRIvalent (5+ YOA) 2018-2019 (AFLURIA) 0.5 ML IM ONE (16:00)
[2018-09-06 16:35] VITALS: BP 105/62
--- NOTE | 2018-09-06 17:04 | Progress Note-Pre Operative ---
Pre-Operative Progress Note H&P Reviewed The H&P was reviewed, patient examined and no changes noted. Date Seen by Provider: Sep 06, 2018 Time Seen by Provider: 17:00 Date H&P Reviewed: Sep 06, 2018 Time H&P Reviewed: 17:00 Pre-Operative Diagnosis: right lower quadrant abdominal pain LINDA WYNN MD Sep 06, 2018 17:04
[2018-09-06] MEDS: ONDANSETRON 4 MG/2 ML (SDV) Z0FRAN IV PRN ×2 (17:09→22:36)
[2018-09-06] MEDS: CIPROFLOXACIN 400 MG/D5W 200 ML (PRE-MIX) IV SCH (17:35)
[2018-09-06] MEDS ORDERED: TOPI50TA13 PO (18:27)
[2018-09-06] MEDS ORDERED: ONDA8TAB9 SL (18:27)
[2018-09-06] MEDS ORDERED: HYOS-20 PO (18:27)
[2018-09-06] MEDS ORDERED: ESCI20TA PO (18:27)
[2018-09-06] MEDS ORDERED: ALPR0.25 PO (18:27)
--- NOTE | 2018-09-06 18:38 | HISTORY AND PHYSICAL ---
DATE OF SERVICE: ATTENDING PRIMARY CARE PHYSICIAN: Dr. Lomeli. HISTORY OF PRESENT ILLNESS: The patient is a 23-year-old female, who presented to the Emergency Department with a 3-day history of abdominal pain. She has been evaluated at [facility] in the past for this; however, no conclusive diagnosis has been made. She reports that she has had some crampy abdominal pain in the past and she was diagnosed with irritable bowel syndrome. She was also treated for this; however, she continued to have some symptoms. She does take oral contraceptive pills. She denies any vaginal discharge or dyspareunia. She states that the pain in the past 3 days has been more localized in the right lower abdominal quadrant, sharp in nature as well as more severe. She does not report any fever nor chills as well as no nausea, no vomiting. She states that for the most part her bowel movements have been normal. A CT scan was performed, which did show some mesenteric fat stranding in the right lower abdominal quadrant; however, the appendix could not be visualized. A differential at this time includes a terminal ileitis, ovarian cyst, early appendicitis or inflammatory bowel disease. PAST MEDICAL HISTORY: None. PAST SURGICAL HISTORY: None. ALLERGIES: No known drug allergies. MEDICATIONS: Oral contraceptive pill. SOCIAL HISTORY: Negative smoke, social alcohol. FAMILY HISTORY: Noncontributory. VITAL SIGNS: Temperature 97.4, blood pressure 122/76, pulse 87, respirations 18, pulse ox 100% on room air. REVIEW OF SYSTEMS: A well-nourished female, currently in no acute distress. She is not experiencing any shortness of breath or difficulty in breathing. No chest pain, palpitations or diaphoresis. No nausea or vomiting; however, she has not been hungry with the pain in the right lower abdominal quadrant. She does not report any significant episodes of diarrhea nor constipation as well as no red blood per rectum nor any dark tarry stools. No fever or chills. No recent inadvertent weight loss. All other review of systems negative. PHYSICAL EXAMINATION: CHEST: Clear. Good breath sounds bilaterally. HEART: Regular. No murmurs. HEENT: No scleral icterus. NECK: No cervical lymphadenopathy. ABDOMEN: Soft, nondistended. There is a mild to moderate pain upon deep palpation of the right lower abdominal quadrant with voluntary guarding, no rebound. There are no palpable masses or hernias. SKIN: Warm, dry. LABORATORY DATA: WBC 7.2, hemoglobin 13.4, hematocrit 40, platelets 297. Liver function enzymes are normal. ASSESSMENT AND PLAN: A 23-year-old female with intermittent episodes of abdominal pain for the past several years; however, in the past few months, her symptoms have become more frequent and more significant in intensity. She was in the process of being worked up for inflammatory bowel disease. She presents with more localized pain in the right lower abdominal quadrant, which is more severe in nature and persisted for a longer period of time. CT scan did show some mesenteric fat stranding; however, the appendix was not visualized. We will admit her for observation and proceed with IV hydration, clear liquid diet and physical examinations. If her clinical status worsens and she does have increased abdominal pain, we will then proceed with a diagnostic laparoscopy. Job ID: [id number] DocumentID: [id number] Dictated Date: 09/06/2018 16:58:49 Bullet Assembly Press Setter Operator Date: 09/06/2018 18:37:25 Dictated By: LINDA WYNN MD MTDD
[2018-09-06] MEDS: fentaNYL INJECTION 100 MCG/2 ML AMP IV PRN (19:09)
[2018-09-06 20:00] VITALS: BP 100/51
[2018-09-06] MEDS: metroNIDAZOLE 500 MG/100 ML IVPB (PRE-MIX) IV SCH (21:31)
[2018-09-07] VITALS (7 sets, daily range): BP systolic 104–121; BP diastolic 55–62
[2018-09-07] MEDS: NS IV 1000 ML 1,000 ML IV SCH (03:59)
[2018-09-07] MEDS: CIPROFLOXACIN 400 MG/D5W 200 ML (PRE-MIX) IV SCH ×2 (04:24→17:21)
[2018-09-07] MEDS: fentaNYL INJECTION 100 MCG/2 ML AMP IV PRN ×3 (04:53→23:02)
[2018-09-07] MEDS: metroNIDAZOLE 500 MG/100 ML IVPB (PRE-MIX) IV SCH ×3 (06:34→21:09)
[2018-09-07] MEDS ORDERED: ALPR0.5T7 PO (09:39)
[2018-09-07] MEDS ORDERED: LEVO1TAB9 PO (09:39)
[2018-09-07] MEDS ORDERED: HYOS-19 SL (09:39)
[2018-09-07] MEDS: ONDANSETRON 4 MG/2 ML (SDV) Z0FRAN IV PRN ×2 (14:12→18:16)
--- NOTE | 2018-09-07 15:57 | Progress Note-Pre Operative ---
Pre-Operative Progress Note H&P Reviewed The H&P was reviewed, patient examined and no changes noted. Date Seen by Provider: Sep 07, 2018 Time Seen by Provider: 15:55 Date H&P Reviewed: Sep 07, 2018 Time H&P Reviewed: 15:55 Pre-Operative Diagnosis: recurrent abdominal pain, nausea, vomiting, diarrhea, rectal bleed LINDA WYNN MD Sep 07, 2018 3:57 pm
--- NOTE | 2018-09-07 15:58 | Conscious Sedation/ASA ---
Conscious Sedation Pre-Proced Time 15:55 ASA Score 1 For ASA 3 and 4: Consider anesthesia and medical clearance. Also, for patients with a history of failed moderate sedation consider anesthesia. Airway Lungs Heart ASA score ASA 1: a normal healthy patient ASA 2: a patient with a mild systemic disease (mid diabetes, controlled hypertension, obesity ASA 3: a patient with a severe systemic disease that limits activity (angina , COPD, prior Myocardial infarction) ASA 4: a patient with an incapacitating disease that is a constant threat to life (CHF, renal failure) ASA 5: a moribund patient not expected to survive 24 hrs. (ruptured aneurysm) ASA 6: a declared brain patient whose organs are being harvested. For emergent operations, add the letter E after the classification Mallampati Classification Grade 2 Sedation Plan Analgesia, Amnesia, Plan communicated to team members, Discussed options with patient/fam, Discussed risks with patient/fam The patient is an appropriate candidate to undergo the planned procedure, sedation, and anesthesia. The patient immediately re-assessed prior to indication. LINDA WYNN MD Sep 07, 2018 3:57 pm
[2018-09-07] MEDS ORDERED: PROMETHAZINE INJ 25 MG/ML (PHENERGAN) AMP IVP PRN (16:15)
[2018-09-07] MEDS ORDERED: CATHETER FLUSH 10 ML SYR IV PRN (16:45)
[2018-09-07] MEDS: METOCLOPRAMIDE INJ 10 MG/2 ML (REGLAN) IVP SCH (18:32)
[2018-09-07] MEDS ORDERED: MAGNESIUM CITRATE 300 ML BTL PO ONE (22:30)
[2018-09-07] MEDS ORDERED: MAGNESIUM CITRATE 300 ML BTL ONE (23:23)
[2018-09-08] MEDS: METOCLOPRAMIDE INJ 10 MG/2 ML (REGLAN) IVP SCH ×4 (00:07→20:04)
[2018-09-08 00:52] VITALS: BP 109/59
[2018-09-08] MEDS: CIPROFLOXACIN 400 MG/D5W 200 ML (PRE-MIX) IV SCH ×2 (04:15→18:52)
[2018-09-08] MEDS: metroNIDAZOLE 500 MG/100 ML IVPB (PRE-MIX) IV SCH ×2 (06:12→17:42)
[2018-09-08] MEDS: NS IV 1000 ML 1,000 ML IV SCH ×2 (06:12→15:00)
[2018-09-08 08:00] VITALS: BP 80/43
--- NOTE | 2018-09-08 08:43 | Diagnostic Imaging Report ---
INDICATION: Nausea and vomiting. Gallbladder sonography performed in the routine fashion. FINDINGS: The liver showed normal echogenicity with no focal lesions. Gallbladder was unremarkable with no stones or wall thickening. Common duct measured 3.5 mm. The pancreas is unremarkable to the extent seen. The right kidney was normal and measured 10.4 cm in length. There was no ascites. Portal vein is patent with flow in the normal direction towards the liver. IMPRESSION: Unremarkable gallbladder sonography. Dictated by: Dictated on workstation # [id number]
[2018-09-08 12:00] VITALS: BP 86/48
[2018-09-08] MEDS ORDERED: NS IV 500 ML 500 ML ONE (14:58)
[2018-09-08] MEDS ORDERED: LIDOCAINE JELLY 2% 6 ML SYRINGE ONE (14:59)
[2018-09-08] MEDS ORDERED: MIDAZOLAM 2 MG/2 ML (VERSED) VIAL ONE ×2 (14:59→15:00)
[2018-09-08] MEDS ORDERED: HURRICAINE EXT TUBE (BENZOCAINE) ONE (14:59)
[2018-09-08] MEDS ORDERED: fentaNYL INJECTION 100 MCG/2 ML AMP ONE (15:00)
[2018-09-08] MEDS ORDERED: PROPOFOL INJECTION 50 ML IV ONE (15:09)
[2018-09-08] MEDS ORDERED: NS IV 500 ML 500 ML IV PRN (15:17)
[2018-09-08] MEDS ORDERED: LIDOCAINE JELLY 2% 6 ML SYRINGE MM PRN (15:30)
[2018-09-08] MEDS ORDERED: HURRICAINE EXT TUBE (BENZOCAINE) XX PRN (15:30)
[2018-09-08] MEDS ORDERED: fentaNYL INJECTION 100 MCG/2 ML AMP IVP ONE (15:30)
[2018-09-08] MEDS ORDERED: MIDAZOLAM 2 MG/2 ML (VERSED) VIAL IVP ONE (15:30)
[2018-09-08] MEDS ORDERED: proPOfol 200 MG/20 ML (DIPRIVAN) VIAL IV ONE (15:37)
[2018-09-08] MEDS ORDERED: MEPERIDINE (DEMEROL) INJ 50 MG/ML ONE (15:45)
[2018-09-08 16:00] VITALS: BP 103/51
--- NOTE | 2018-09-08 16:01 | Anesthesia-General Post-Op ---
MAC Patient Condition Mental Status/LOC: Same as Preop Cardiovascular: Satisfactory Nausea/Vomiting: Absent Respiratory: Satisfactory Pain: Controlled Complications: Absent Post Op Complications Complications None Follow Up Care/Instructions Patient Instructions None needed. Anesthesiology Discharge Order Discharge Order Patient is doing well, no complaints, stable vital signs, no apparent adverse anesthesia problems. No complications reported per nursing. ENEDELIA INFANTE CRNA Sep 08, 2018 16:01
--- NOTE | 2018-09-08 16:12 | Progress Note-Post Operative ---
Post-Operative Progess Note Surgeon (s)/Superintendent Drivers (s) Surgeon LINDA WYNN MD Superintendent Drivers: none Pre-Operative Diagnosis recurrent abdominal pain, nausea, vomiting, diarrhea, rectal bleed Post-Operative Diagnosis reflux esophagitis(stage 2), small HH(1.5cm), moderate gastritis. normal colon and rectum. Procedure & Operative Findings Date of Procedure 09/08/18 Procedure Performed/Findings EGD with bx. Colonoscopy with bx. Anesthesia Type MAC Estimated Blood Loss Estimated blood loss (mL): minimal Specimens/Packing Specimens Removed GE jxn, antrum, cecum, asc, transverse, desc, rectum. LINDA WYNN MD Sep 08, 2018 4:12 pm
[2018-09-08] MEDS ORDERED: PANT40TA2 PO (16:15)
[2018-09-08] MEDS ORDERED: MESA1.2T3 PO (16:15)
--- NOTE | 2018-09-08 16:15 | Discharge Inst-Surgical ---
D/C Lap Instructions-KIDO New, Converted, or Re-Newed RX: RX on Chart Follow Up Appt in 2 weeks Activity as tolerated Avoid Alcohol, Caffeine, Spicy [place] and Acid foods. Drink 64 fluid oz or more of fluids per day. Symptoms to Report: Fever over 101 degree F, Nausea/Vomiting If any problems/questions: Contact your physician or go to Emergency Room LINDA WYNN MD Sep 08, 2018 4:15 pm
[2018-09-08 20:08] VITALS: BP 82/38
[2018-09-08] MEDS ORDERED: LACTATED RINGERS 1,000 ML IV SCH ×2 (21:30→23:30)
[2018-09-08] MEDS ORDERED: LACTATED RINGERS 1,000 ML IV ONE (21:32)
--- NOTE | 2018-09-08 22:16 | OPERATIVE REPORT ---
DATE OF SERVICE: 09/08/2018 ATTENDING PRIMARY CARE PHYSICIAN: Vicki Lomeli DO PREOPERATIVE DIAGNOSES: Recurrent crampy abdominal pain, nausea and vomiting, rectal bleed. POSTOPERATIVE DIAGNOSES: Reflux esophagitis stage II, small hiatal hernia approximately 1.5 cm in size, moderate severity gastritis. Colon and rectum were normal. PROCEDURE: EGD with biopsy, colonoscopy with biopsy. SURGEON: Linda Wynn MD ANESTHESIA: Monitored anesthesia care. ESTIMATED BLOOD LOSS: Minimal. FINDINGS: EGD, reflux esophagitis stage II, no ulcerations or strictures. There was a small hiatal hernia approximately 1.5 cm in size. There was a moderate severity gastritis, no formal ulcerations, polyps or any neoplasms. Pylorus and duodenum appeared normal and no distal obstructions. Colonoscopy, anus, rectum and colon were normal. There were no polyps or any mucosal inflammatory changes identified. Random biopsies were taken of the cecum, ascending, transverse, descending colon and rectum. DISPOSITION: The patient tolerated the procedure well. INDICATIONS: The patient is a 23-year-old female who presented to the Emergency Department with a 3 day history of abdominal pain. She has been evaluated at [facility] in the past for this. However, there has been no conclusive diagnosis made at this time. She reports that she has had some crampy abdominal pain and has been diagnosed with some form of irritable bowel syndrome and treated for this. She does take oral contraceptive pills. She denies any vaginal discharge or dyspareunia. She reports in the past 3 days before admission, she had more localized pain in the right lower abdominal quadrant, which was sharp in nature and much more severe. She did not report any fever nor chills as well as no nausea or vomiting. She states for the most part her bowel movements have been normal recently; however, she reports that at different times she would have diarrhea and would also notice some small amounts of red blood as well. A CT scan was performed on this admission, which did show some mesenteric fat stranding around the right lower abdominal quadrant; however, the appendix cannot be visualized. The differential at that time included an early appendicitis, inflammatory bowel disease, terminal ileitis, ovarian cyst as well as irritable bowel syndrome. She was admitted and her pain was constant and her white count normal and her vital signs stable. She did have continued tenderness; however, no peritoneal signs in the right lower abdominal quadrant. We feel that there is a potential for inflammatory bowel disease including Crohn's disease or ulcerative colitis and we will proceed with an EGD and colonoscopy. DESCRIPTION OF PROCEDURE: The patient was brought to the endoscopy suite, laid in left lateral decubitus position with the head slightly elevated. After adequate IV pain and sedating medications and monitored anesthesia care, the mouthpiece was applied. Endoscope was placed in the mouth, visualizing the pharynx and hypopharyngeal region. Vocal cords, epiglottis and vallecula identified and appeared to be normal. Endoscope was then gently intubated at the esophageal opening and esophagus insufflated. The endoscope was then advanced to the first, second and third portion of the esophagus at the level of the GE junction, a reflux esophagitis stage II identified. There were no ulcers or strictures identified in this region. A biopsy was taken of the GE junction with forceps with visualization of good hemostasis. The endoscope was then easily advanced in the stomach and endoscope retroflexed, visualizing a small hiatal hernia approximately 1.5 cm in size. There was also a moderate severity gastritis focussed more towards the stomach antrum. There were no formal ulcerations, polyps or any neoplasms. A biopsy was taken of the stomach antrum with forceps to rule out H. pylori with visualization of good hemostasis. The endoscope was then advanced to the pylorus into the first and second portion of the duodenum, which appeared normal with no ulcerations or any distal obstructions. There was also no mucosal inflammatory changes. The endoscope was then slowly withdrawn while taking a second look and suctioning of residual air with no additional findings. The patient tolerated this portion of the procedure well. She does have a significant gastritis and reflux esophagitis as well as a hiatal hernia and we will recommend the necessary lifestyle and diet accommodation including small and more frequent meals, avoidance of eating at night as well as head elevation while lying supine. She also needs to avoid caffeinated beverages, spicy, greasy and acidic foods. 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 Under the same anesthesia, we then proceed with colonoscopy portion of the procedure. A digital rectal examination was performed, which revealed no significant hemorrhoids. Normal sphincter tone was felt and there were no palpable masses. There were no inflammatory changes or chronic sinus tracts to indicate any perianal fistulas, abscesses or inflammation. The endoscope was then intubated to the anus and rectum gently insufflated. The endoscope was then advanced through the valves of [place] of the rectum with no polyps or neoplasms identified. We then proceeded through the sigmoid colon. No diverticulosis identified. The endoscope was then advanced to the remainder of the descending, transverse and ascending colon to the cecum. These segments were normal as well. There were no mucosal inflammatory changes throughout the colon to indicate any active inflammatory disease at this time. We then proceeded with random biopsies of the cecum, ascending, transverse, descending colon and rectum to rule out a microscopic collagenous colitis. The patient tolerated the procedure well. We will start her on an empiric therapy of mesalamine 1 gram q.i.d. for 8 weeks and during this process, we will also refer her as an outpatient to gastroenterology for further evaluation and testing for inflammatory bowel disease. Job ID: [id number] DocumentID: [id number] Dictated Date: 09/08/2018 16:23:55 Resource Manager Date: 09/08/2018 22:16:27 Dictated By: LINDA WYNN MD
[2018-09-09] MEDS: metroNIDAZOLE 500 MG/100 ML IVPB (PRE-MIX) IV SCH ×2 (00:18→06:27)
[2018-09-09 00:30] VITALS: BP 104/54
[2018-09-09] MEDS: METOCLOPRAMIDE INJ 10 MG/2 ML (REGLAN) IVP SCH ×2 (01:17→06:27)
[2018-09-09 04:00] VITALS: BP 94/53
[2018-09-09] MEDS: CIPROFLOXACIN 400 MG/D5W 200 ML (PRE-MIX) IV SCH (05:26)
[2018-09-09] MEDS: NS IV 1000 ML 1,000 ML IV SCH (05:46)
[2018-09-09 08:00] VITALS: BP 99/53
[2018-09-09 10:25] VITALS: BP 99/53
--- OUTSIDE RECORDS SUMMARY | 2018-09-10 15:10 | XMS REPORT | Continuity of Care Document ---
Author Author [facility] Organization [facility] Address Unknown Phone Unavailable Allergies There is no data. Medications There is no data. Problems There is no data. Procedures There is no data. Results There is no data. Encounters ACCT No. Visit Date/Time Discharge Status Pt. Type Provider Facility Loc./Unit Complaint [id number] 02/04/2014 10:23:00 02/04/2014 23:59:59 CLS Outpatient [id number] 12/22/2013 19:09:00 12/22/2013 23:59:59 CLS Outpatient [id number] 11/12/2013 13:59:00 11/12/2013 23:59:59 CLS Outpatient [id number] 10/18/2013 08:23:00 10/18/2013 23:59:59 CLS Outpatient [id number] 10/12/2013 12:54:00 10/12/2013 23:59:59 CLS Outpatient
== END 2018-09-09 10:25 | disposition home or self-care (01) ==
LOC: EDUNIT# 12:13 → ER 12:14 → UNDOADMIN 15:00 → SDC 15:00 → 4TH 15:00 → SDC 09-09 10:25 → UNDODISIN 09-09 10:25
PROVIDERS: ATTEND Surgery
DX: K21.0 Gastro-esophageal reflux disease with esophagitis (principal); K44.9 Diaphragmatic hernia without obstruction or gangrene; K29.70 Gastritis, unspecified, without bleeding; K62.5 Hemorrhage of anus and rectum; K58.9 Irritable bowel syndrome, unspecified; Z79.899 Other long term (current) drug therapy
CPT/HCPCS: 36415; 74177; 76705; 80053; 81000; 83690; 84703; 85025; 88305; 96361; 96365; 96375